=== PATIENT | female | born 1955 | race Caucasian/White ===

== ENCOUNTER → 2023-12-07 | Outpatient (CLI) | payer MEDICARE ==
--- NOTE | 2023-12-07 10:58 | XR ---
EXAMINATION TYPE: XR KUB DATE OF EXAM: 12/07/2023 HISTORY: Pain Comparison: None.Single KUB is submitted for interpretation. Findings: Right renal calculi: None Visualized. Right ureteral calculi: None Visualized. Left renal calculi: Lower pole left renal calculus measuring 1 cm. Left ureteral calculi: None Visualized. Pelvic calcifications: Yes Bowel gas pattern is unremarkable. No free air. No mass effects. IMPRESSION: 1. Lower pole left renal calculus measuring 1 cm. [facility], , 12/07/2023 10:55 AM
== END | disposition home or self-care (01) ==
LOC: RADXRMAIN 10:38
PROVIDERS: ATTEND Urology
DX: N20.0 Calculus of kidney (principal)
CPT/HCPCS: 74018

== ENCOUNTER → 2023-12-23 | Outpatient (CLI) | payer MEDICARE ==
[2023-12-23 16:03] LABS: Basophils # (A) 0.02 X 10*3/uL (0.00-0.10); Basophils % (A) 0.3 %; Eosinophils % (A) 1.6 %; HCT 48.5 % (37.2-46.3); HGB 15.9 g/dL (12.0-15.0); Lymphocytes # (A) 1.02 X 10*3/uL (0.90-5.00); Lymphocytes % (A) 16.2 %; MCH 30.9 pg (27.0-32.0); MCHC 32.8 g/dL (32.0-37.0); MCV 94.4 FL (80.0-97.0); Mean Platelet Volume 10.6 FL (9.5-12.2); Monocytes # (A) 0.39 X 10*3/uL (0.20-1.00); Monocytes % (A) 6.2 %; NRBC Per 100 WBC 0 X 10*3/uL (0.00-0.01); Neutrophils # (A) 4.74 X 10*3/uL (1.80-7.70); Neutrophils % (A) 75.2 %; Platelet Count 139 X 10*3/uL (140-440); RBC 5.14 X 10*6/uL (4.10-5.20); RDW 12.8 % (11.5-14.5)
[2023-12-23 16:47] LABS: Calcium 9.5 mg/dL (8.7-10.3); Carbon Dioxide 25.4 mmol/L (21.6-31.8); Chloride 103 mmol/L (96-109); Glucose 123 mg/dL (70-110); Sodium 141 mmol/L (135-145)
[2023-12-23 22:18] LABS: Appearance,Urine Clear (Clear); Bacteria,Urine Many /hpf; Bilirubin,Urine Negative (Negative); Blood,Urine Negative (Negative); Color,Urine Colorless; Glucose,Urine (UA) Negative (Negative); Ketones,Urine Negative (Negative); Leukocyte Esterase,Urine Moderate (Negative); Mucus,Urine Rare /hpf; Nitrite,Urine Negative (Negative); Protein,Urine Negative (Negative); RBC,Urine 2 /hpf (0-5); Specific Gravity,Urine 1.012 (1.001-1.035); Squamous Epithelial Cell,Urine 3 /hpf (0-4); Urobilinogen,Urine <2.0 mg/dL (<2.0); WBC,Urine 22 /hpf (0-5)
== END | disposition home or self-care (01) ==
LOC: LABPAT 10:17
PROVIDERS: ATTEND Urology
DX: N20.0 Calculus of kidney (principal)
CPT/HCPCS: 80048; 81001; 85025; 87077; 87086; 87186

== ENCOUNTER 2023-12-28 23:01 | Emergency (ER) | payer MEDICARE ==
[2023-12-28 23:09] VITALS: TEMP 98.3
--- NOTE | 2023-12-28 23:47 | ED ---
Allergic Reaction HPI - General Chief complaint: Allergic Reaction Stated complaint: allergic reaction Time Seen by Provider: 12/28/23 23:15 Source: patient Mode of arrival: wheelchair Limitations: no limitations - History of Present Illness Initial Comments: This is a 68-year-old female complaining of throat swelling, rash on left flank and inner thigh, itching of scalp x 2 hours. Patient endorses receiving Keflex for a chronic UTI with subsequent symptoms shortly after taking medication. Patient endorses history of Augmentin allergy but denies prior reaction to Keflex. Patient states she is already taking a Medrol Dosepak to counteract a different medication she often has a reaction to. Patient also endorses use of Benadryl several hours ago with some relief. Patient endorses history of 7 mm kidney stone as cause of her chronic UTI for the past year. States she requires to have the UTI cleared up before undergoing treatment for the kidney stone. Patient denies chest pain, shortness of breath, abdominal pain, N/V/D MD Complaint: allergic reaction, hives Onset/Timin -: hour(s) Exposure: medication Symptoms: rash, itching, difficulty swallowing, difficulty breathing, orolingual swelling Severity: moderate Treatment Prior to Arrival: benadryl, steroids - Related Data Previous Rx's Medication Instructions Recorded Levofloxacin [Levaquin] 750 mg PO DAILY 10 Days #10 tab 12/28/23 Allergies Allergy/AdvReac Type Severity Reaction Status Date / Time cephalexin [From Keflex] Allergy Rash/Hives Verified 12/28/23 23:08 Review of Systems ROS Statement: Those systems with pertinent positive or pertinent negative responses have been documented in the HPI. ROS Other: All systems not noted in ROS Statement are negative. 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 Absent: scleral icterus, conjunctival injection, periorbital swelling ENT exam: Present: normal exam, mucous membranes moist, other (Moderate edema of oropharynx and uvula noted) Neck exam: Present: normal inspection. Absent: tenderness, meningismus, lymphadenopathy Respiratory exam: Present: normal lung sounds bilaterally (Lung sounds clear to auscultation in all roy without wheezing, stridor, rales or rhonchi). Absent: respiratory distress, wheezes, rales, rhonchi, stridor Cardiovascular Exam: Present: regular rate, normal rhythm, normal heart sounds. Absent: systolic murmur, diastolic murmur, rubs, gallop, clicks GI/Abdominal exam: Present: soft, normal bowel sounds. Absent: distended, tenderness, guarding, rebound, rigid Extremities exam: Present: normal inspection, full ROM, normal capillary refill. Absent: tenderness, pedal edema, joint swelling, calf tenderness Back exam: Present: normal inspection Neurological exam: Present: alert, oriented X3, CN II-XII intact Psychiatric exam: Present: normal affect, normal mood Skin exam: Present: warm, dry, intact, normal color, rash, urticaria (Urticaria with wheals noted on left lower flank without excoriation or blistering) Course Vital Signs 12/28/23 23:03 Temperature 98.3 F Pulse Rate 95 Respiratory 20 Rate Blood Pressure 159/72 O2 Sat by Pulse 97 Oximetry Medical Decision Making - Medical Decision Making Was pt. sent in by a medical professional or institution (, PA, MARK UP DESIGNER, urgent care, hospital, or retirement...) When possible be specific @ -No Did you speak to anyone other than the patient for history (EMS, parent, family, police, friend...)? What history was obtained from this source @ -No Did you review nursing and triage notes (agree or disagree)? Why? @ -I reviewed and agree with nursing and triage notes Were old charts reviewed (outside hosp., previous admission, EMS record, old EKG, old radiological studies, urgent care reports/EKG's, retirement records)? Report findings @ -No old charts were reviewed Differential Diagnosis (chest pain, altered mental status, abdominal pain women, abdominal pain men, vaginal bleeding, weakness, fever, dyspnea, syncope, headache, dizziness, GI bleed, back pain, seizure, CVA, palpatations, mental health, musculoskeletal)? @ -Differential Dyspnea: Coronary syndrome, arrhythmia, tamponade, allergic urticaria, angioedema, anaphylaxis, asthma, COPD, pulmonary embolism, pneumonia, pneumothorax, pulmonary effusion, anaphylaxis, diabetic ketoacidosis, flailed chest, pulmonary contusion, diaphragmatic rupture, anemia, neuromuscular, this is not meant to be an all-inclusive list. EKG interpreted by me (3pts min.). @ -Not done X-rays interpreted by me (1pt min.). @ -None done CT interpreted by me (1pt min.). @ -None done U/S interpreted by me (1pt. min.). @ -None done What testing was considered but not performed or refused? (CT, X-rays, U/S, l abs)? Why? @ -None What meds were considered but not given or refused? Why? @ -Patient offered Solu-Medrol IM to treat acute symptoms but patient declined noting sensitivity to medication. Did you discuss the management of the patient with other professionals (professionals i.e. , PA, MARK UP DESIGNER, lab, RT, psych nurse, outreach and education social worker, parts room associate, teacher, operations officer trust department, disease case manager)? Give summary @ -No Was smoking cessation discussed for >3mins.? @ -No Was critical care preformed (if so, how long)? @ -No Were there social determinants of health that impacted care today? How? (Homelessness, low income, unemployed, alcoholism, drug addiction, transportation, low edu. Level, literacy, decrease access to med. care, fci, rehab)? @ -No Was there de-escalation of care discussed even if they declined (Discuss DNR or withdrawal of care, Hospice)? DNR status @ -No What co-morbidities impacted this encounter? (DM, HTN, Smoking, COPD, CAD, Cancer, CVA, ARF, Chemo, Hep., AIDS, mental health diagnosis, sleep apnea, morbid obesity)? @ -None Was patient admitted / discharged? Hospital course, mention meds given and route, prescriptions, significant lab abnormalities, going to OR and other pertinent info. @ -Discharge. Epinephrine IM and Benadryl p.o. given to patient. UA also collected and sent for culture. Advised patient to hold on all Keflex use and start Levaquin tomorrow. Advised to continue Benadryl every 4-6 hours as needed and continue Medrol Dosepak as prescribed. Advised follow-up with primary care in next 24 to 48 hours. Undiagnosed new problem with uncertain prognosis? @ -No Drug Therapy requiring intensive monitoring for toxicity (Heparin, Nitro, Insulin, Cardizem)? @ -No Were any procedures done? @ -No Diagnosis/symptom? @ -Angioedema and allergic urticaria due to medication, urinary tract infection Acute, or Chronic, or Acute on Chronic? @ -Acute Uncomplicated (without systemic symptoms) or Complicated (systemic symptoms)? @ -Complicated Side effects of treatment? @ -No Exacerbation, Progression, or Severe Exacerbation? @ -Exacerbation Poses a threat to life or bodily function? How? (Chest pain, USA, PA, pneumonia, PE, COPD, DKA, ARF, appy, cholecystitis, CVA, Diverticulitis, Homicidal, Suicidal, threat to staff... and all critical care pts) @ -Angioedema Disposition Clinical Impression: Angioedema, Urticaria due to drug allergy, UTI (urinary tract infection) Disposition: HOME SELF-CARE Condition: Good Instructions (If sedation given, give patient instructions): Urinary Tract Infection in Women (ED), Anaphylaxis (ED) Additional Instructions: Continue Benadryl once every 4-6 hours as needed as well as ongoing use of Medrol Dosepak as previously directed. ER/911 if throat swelling/dyspnea should recur. Prescriptions: Levofloxacin [Levaquin] 750 mg PO DAILY 10 Days #10 tab Is patient prescribed a controlled substance at d/c from ED?: No Referrals: Josie Holly MD [Primary Care Provider] - 1-2 days Time of Disposition: 23:55
[2023-12-29] MEDS: EPINEPHrine - Anaphylaxis Kit (1 mg/mL) IM STA (00:12)
[2023-12-29] MEDS: diphenhydrAMINE ELIXIR 25 MG/10 ML CUP PO STA (00:12)
[2023-12-29 00:25] VITALS: BP 123/78; PULSE 80; RESP 16
[2023-12-29 00:48] LABS: Appearance,Urine Clear (Clear); Bacteria,Urine Occasional /hpf; Bilirubin,Urine Negative (Negative); Blood,Urine Negative (Negative); Calcium Oxalate Crystals,Urine Occasional /hpf; Color,Urine Light Yellow; Glucose,Urine (UA) Negative (Negative); Ketones,Urine Negative (Negative); Leukocyte Esterase,Urine Large (Negative); Nitrite,Urine Positive (Negative); Protein,Urine Negative (Negative); RBC,Urine 12 /hpf (0-5); Specific Gravity,Urine 1.015 (1.001-1.035); Squamous Epithelial Cell,Urine 4 /hpf (0-4); Urobilinogen,Urine <2.0 mg/dL (<2.0); WBC,Urine 51 /hpf (0-5)
== END 2023-12-29 00:16 | disposition home or self-care (01) ==
LOC: EC 23:01
CPT/HCPCS: 81001; 87086; 96372; 99283

== ENCOUNTER 2024-05-13 08:30 | Inpatient (IN) | payer MEDICARE, OTHER ==
[2024-05-13] MEDS: ONDANSETRON 4 MG/2 ML VIAL IVP STA (08:49)
[2024-05-13] MEDS: NITROGLYCERIN SL TABS 0.4 MG TAB SUBLINGUAL STA ×2 (08:53→09:00)
[2024-05-13] MEDS: SODIUM CHLORIDE 0.9% 1,000 ML IV STA ×2 (08:54→13:33)
[2024-05-13 09:04] LABS: Basophils % (A) 0 %; Eosinophils % (A) 1 %; HCT 47.8 % (34.0-46.0); HGB 15.2 gm/dL (11.4-16.0); Lymphocytes # (A) 1.2 k/uL (1.0-4.8); Lymphocytes % (A) 15 %; MCH 30.8 pg (25.0-35.0); MCHC 31.7 g/dL (31.0-37.0); MCV 97.1 fL (80.0-100.0); Mean Platelet Volume 7.6; Monocytes # (A) 0.5 k/uL (0-1.0); Monocytes % (A) 6 %; Neutrophils # (A) 5.7 k/uL (1.3-7.7); Neutrophils % (A) 74 %; Platelet Count 133 k/uL (150-450); RBC 4.93 m/uL (3.80-5.40); RDW 12.4 % (11.5-15.5); WBC 7.8 k/uL (3.8-10.6)
[2024-05-13 09:10] LABS: INR 1.1 (<1.2); Partial Thromboplastin Time 23.4 sec (22.0-30.0); Prothrombin Time 11.8 sec (10.0-12.5)
[2024-05-13 09:14] LABS: ALT 17 U/L (4-34); AST 21 U/L (14-36); African American GFR (CKD) >90 (>60 ml/min/1.73 sqM); Albumin 4.4 g/dL (3.5-5.0); Alkaline Phosphatase 79 U/L (38-126); Anion Gap 11 mmol/L; Blood Urea Nitrogen 16 mg/dL (7-17); Calcium 9.3 mg/dL (8.4-10.2); Carbon Dioxide 22 mmol/L (22-30); Chloride 105 mmol/L (98-107); Glucose 163 mg/dL (74-99); Magnesium 1.8 mg/dL (1.6-2.3); Non-African American GFR(CKD) >90 (>60 ml/min/1.73 sqM); Potassium 3.5 mmol/L (3.5-5.1); Sodium 138 mmol/L (137-145); Total Bilirubin 0.9 mg/dL (0.2-1.3); Total Protein 7.3 g/dL (6.3-8.2)
--- NOTE | 2024-05-13 09:33 | XR ---
EXAMINATION TYPE: XR chest 2V DATE OF EXAM: 05/13/2024 9:22 AM COMPARISON: None CLINICAL INDICATION: Female, 69 years old with history of Chest Pain; [facility] TECHNIQUE: XR chest 2V Frontal and lateral views of the chest. FINDINGS: Lungs/Pleura: There is no evidence of pleural effusion, focal consolidation, or pneumothorax. Pulmonary vascularity: Unremarkable. Heart/mediastinum: Cardiomediastinal silhouette is unremarkable. Musculoskeletal: No acute osseous pathology. Other findings: None IMPRESSION: No acute cardiopulmonary disease/process. [facility], , 05/13/2024 9:31 AM
[2024-05-13 09:40] LABS: Influenza A Not Detected (Not Detectd); Influenza B Not Detected (Not Detectd); RSV Not Detected (Not Detectd)
[2024-05-13] MEDS: MORPHINE SULFATE 4 MG/ML SYRINGE IVP STA (09:43)
[2024-05-13] MEDS ORDERED: NALOXONE 0.4 MG/ML 1 ML VIAL IV PRN (10:45)
[2024-05-13] MEDS ORDERED: ONDANSETRON 4 MG/2 ML VIAL IVP PRN (10:45)
--- NOTE | 2024-05-13 10:47 | ED ---
General Adult HPI - General Chief complaint: Chest Pain Stated complaint: chest pain Time Seen by Provider: 05/13/24 08:35 Source: patient, EMS, RN notes reviewed, old records reviewed Mode of arrival: EMS Limitations: no limitations - History of Present Illness Initial comments: Patient is a 69-year-old female presents emergency department with chest pain. States it started approximately 5 AM this morning. Discussed that it is a pressure sensation that is substernal and over the left side of her chest. Does not radiate. Has nausea and vomiting with it. No diaphoresis. Presented after multiple hours of this. Received 324 mg of aspirin but no other medications. No significant cardiac history. Presents for further evaluation at this time. Denies any fevers, chills, cough. - Related Data Home Medications Medication Instructions Recorded Confirmed Biotin(Unknown Dose) 1 tab PO DAILY 05/13/24 05/13/24 Elderberry(Unknown Dose) 1 tab PO DAILY 05/13/24 05/13/24 Vitamin B-12(Unknown Dose) 1 tab PO DAILY 05/13/24 05/13/24 Vitamin C(Unknown Dose) 2 tab PO DAILY 05/13/24 05/13/24 Allergies Allergy/AdvReac Type Severity Reaction Status Date / Time cephalexin [From Keflex] Allergy Rash/Hives Verified 05/13/24 10:46 Sulfa (Sulfonamide Allergy Anaphylaxis Verified 05/13/24 10:46 Antibiotics) Review of Systems ROS Statement: Those systems with pertinent positive or pertinent negative responses have been documented in the HPI. Review of Systems: CONST: Denies fever EYES: Denies blurry vision ENT: Denies nasal congestion C/V: Endorses chest pain RESP: Denies shortness of breath GI: Denies abdominal pain : Denies dysuria SKIN: Denies rash. MSK: Denies joint pain. NEURO: Denies headache ROS Other: All systems not noted in ROS Statement are negative. 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 Also nausea and vomiting. HEAD: Normal with no signs of head trauma. EYES: PERRLA, EOMI, conjunctiva normal, no discharge. ENT: Hearing grossly intact, normal oropharynx. RESPIRATORY: Clear breath sounds bilaterally. No wheezes, rales, or rhonchi. C/V: Regular rate and rhythm. S1 and S2 auscultated, no edema, peripheral pulses 2+ and intact throughout ABD: Abd is soft, nontender, nondistended EXT: Normal range of motion, no obvious deformity SKIN: No rashes or lesions observed on exposed skin. NEURO: Alert and oriented x 4. No focal deficits. Limitations: no limitations Course Vital Signs 05/13/24 05/13/24 05/13/24 08:32 08:59 09:44 Temperature 97.7 F Pulse Rate 67 67 61 Respiratory 20 20 20 Rate Blood Pressure 145/81 117/52 121/62 O2 Sat by Pulse 99 98 99 Oximetry 05/13/24 13:02 Temperature Pulse Rate 69 Respiratory Rate Blood Pressure 121/62 O2 Sat by Pulse 95 Oximetry Medical Decision Making - Medical Decision Making Was pt. sent in by a medical professional or institution (, PA, LENS SHAPER GRINDER, urgent care, hospital, or shelter...) When possible be specific @ -No Did you speak to anyone other than the patient for history (EMS, parent, family, police, friend...)? What history was obtained from this source @ -No Did you review nursing and triage notes (agree or disagree)? Why? @ -I reviewed and agree with nursing and triage notes Were old charts reviewed (outside hosp., previous admission, EMS record, old EKG, old radiological studies, urgent care reports/EKG's, shelter records)? Report findings @ -No old charts were reviewed Differential Diagnosis (chest pain, altered mental status, abdominal pain women, abdominal pain men, vaginal bleeding, weakness, fever, dyspnea, syncope, headache, dizziness, GI bleed, back pain, seizure, CVA, palpatations, mental health, musculoskeletal)? @ -Differential Chest Pain: Stable Angina, Unstable Angina, STEMI, NSTEMI Aortic Dissection, Pneumothorax, Musculoskeletal, Esophageal Spasm GERD, Cholecystitis, Pancreatitis, Zoster, this is not meant to be an all-inclusive list. EKG interpreted by me (3pts min.). @ -As above X-rays interpreted by me (1pt min.). @ -Chest x-ray revealed no obvious acute cardiopulmonary process. CT interpreted by me (1pt min.). @ -None done U/S interpreted by me (1pt. min.). @ -None done What testing was considered but not performed or refused? (CT, X-rays, U/S, labs)? Why? @ -None What meds were considered but not given or refused? Why? @ -None Did you discuss the management of the patient with other professionals (professionals i.e. , PA, LENS SHAPER GRINDER, lab, RT, psych nurse, social and political studies professor, aeronautical engineering officer, teacher, financial aids officer, case sealer)? Give summary @ -Discussed management with Dr. Artis, who accepted the admission. Nursing staff updated cardiology when the troponin was elevated. Patient was made NPO. Was smoking cessation discussed for >3mins.? @ -No Was critical care preformed (if so, how long)? @ -Yes, 35 minutes. Were there social determinants of health that impacted care today? How? (Homelessness, low income, unemployed, alcoholism, drug addiction, transportation, low edu. Level, literacy, decrease access to med. care, correction, rehab)? @ -No Was there de-escalation of care discussed even if they declined (Discuss DNR or withdrawal of care, Hospice)? DNR status @ -No What co-morbidities impacted this encounter? (DM, HTN, Smoking, COPD, CAD, Cancer, CVA, ARF, Chemo, Hep., AIDS, mental health diagnosis, sleep apnea, morbid obesity)? @ -None Was patient admitted / discharged? Hospital course, mention meds given and route, prescriptions, significant lab abnormalities, going to OR and other pertinent info. @ -Patient presents with substernal chest pain with nausea and vomiting. Started approximately 3 hours prior to arrival. Patient given IV fluids, Zofran. Already received 3 to 24 mg of aspirin at home. Patient will receive nitroglycerin tablets. Vitals are within acceptable limits. She was in agreement this plan. Nitro tablets did not significantly improve the patient's pain. She was given 4 mg of IV morphine which did resolve her pain. Patient's EKG showed nonspecific ST segment depressions but no evidence of reciprocal changes. Chest x-ray unremarkable. Repeat EKG showed no dynamic changes. Patient's laboratory studies are remarkable for a indeterminant troponin at 0.016. The remainder the workup unremarkable. I discussed results with patient. She states she is pain-free at this time. She will be admitted for chest pain observation. She was in agreement this plan. Echo ordered. Cardiology consulted. I spoke with the admitting provider, Dr. Gotti who accepted the admission. Following admission, I was informed that while the patient was holding in the ER, troponin did elevate 0.8. Therefore heparin was initiated by myself. Repeat EKG revealed no dynamic changes. Nursing staff notified cardiology of the change they were in agreement the heparin. Patient may be going for heart c ath and was made NPO. Undiagnosed new problem with uncertain prognosis? @ -No Drug Therapy requiring intensive monitoring for toxicity (Heparin, Nitro, Insulin, Cardizem)? @ -Heparin Were any procedures done? @ -No Diagnosis/symptom? @ -Chest pain, NSTEMI Acute, or Chronic, or Acute on Chronic? @ -Acute Uncomplicated (without systemic symptoms) or Complicated (systemic symptoms)? @ -Complicated Side effects of treatment? @ -No Exacerbation, Progression, or Severe Exacerbation? @ -No Poses a threat to life or bodily function? How? (Chest pain, [place], [place], pneumonia, PE, COPD, DKA, ARF, appy, cholecystitis, CVA, Diverticulitis, Homicidal, Suicidal, threat to staff... and all critical care pts) @ -Yes - Lab Data Result diagrams: 05/13/24 08:41 05/13/24 08:41 Lab Results 05/13/24 05/13/24 05/13/24 Range/Units 08:41 08:41 08:41 WBC 7.8 (3.8-10.6) k/uL RBC 4.93 (3.80-5.40) m/uL Hgb 15.2 (11.4-16.0) gm/dL Hct 47.8 H (34.0-46.0) % MCV 97.1 (80.0-100.0) fL MCH 30.8 (25.0-35.0) pg MCHC 31.7 (31.0-37.0) g/dL RDW 12.4 (11.5-15.5) % Plt Count 133 L (150-450) k/uL MPV 7.6 Neutrophils % 74 % Lymphocytes % 15 % Monocytes % 6 % Eosinophils % 1 % Basophils % 0 % Neutrophils # 5.7 (1.3-7.7) k/uL Lymphocytes # 1.2 (1.0-4.8) k/uL Monocytes # 0.5 (0-1.0) k/uL Eosinophils # 0.0 (0-0.7) k/uL Basophils # 0.0 (0-0.2) k/uL PT 11.8 (10.0-12.5) sec INR 1.1 (<1.2) APTT 23.4 (22.0-30.0) sec Sodium 138 (137-145) mmol/L Potassium 3.5 (3.5-5.1) mmol/L Chloride 105 (98-107) mmol/L Carbon Dioxide 22 (22-30) mmol/L Anion Gap 11 mmol/L BUN 16 (7-17) mg/dL Creatinine 0.59 (0.52-1.04) mg/dL Est GFR (CKD-EPI)AfAm >90 (>60 ml/min/1.73 sqM) Est GFR (CKD-EPI)NonAf >90 (>60 ml/min/1.73 sqM) Glucose 163 H (74-99) mg/dL Calcium 9.3 (8.4-10.2) mg/dL Magnesium 1.8 (1.6-2.3) mg/dL Total Bilirubin 0.9 (0.2-1.3) mg/dL AST 21 (14-36) U/L ALT 17 (4-34) U/L Alkaline Phosphatase 79 (38-126) U/L Troponin I (0.000-0.034) ng/mL Total Protein 7.3 (6.3-8.2) g/dL Albumin 4.4 (3.5-5.0) g/dL Lipase (23-300) U/L Influenza Type A (PCR) (Not Detectd) Influenza Type B (PCR) (Not Detectd) RSV (PCR) (Not Detectd) SARS-CoV-2 (PCR) (Not Detectd) 05/13/24 05/13/24 05/13/24 Range/Units 08:41 08:41 08:54 WBC (3.8-10.6) k/uL RBC (3.80-5.40) m/uL Hgb (11.4-16.0) gm/dL Hct (34.0-46.0) % MCV (80.0-100.0) fL MCH (25.0-35.0) pg MCHC (31.0-37.0) g/dL RDW (11.5-15.5) % Plt Count (150-450) k/uL MPV Neutrophils % % Lymphocytes % % Monocytes % % Eosinophils % % Basophils % % Neutrophils # (1.3-7.7) k/uL Lymphocytes # (1.0-4.8) k/uL Monocytes # (0-1.0) k/uL Eosinophils # (0-0.7) k/uL Basophils # (0-0.2) k/uL PT (10.0-12.5) sec INR (<1.2) APTT (22.0-30.0) sec Sodium (137-145) mmol/L Potassium (3.5-5.1) mmol/L Chloride (98-107) mmol/L Carbon Dioxide (22-30) mmol/L Anion Gap mmol/L BUN (7-17) mg/dL Creatinine (0.52-1.04) mg/dL Est GFR (CKD-EPI)AfAm (>60 ml/min/1.73 sqM) Est GFR (CKD-EPI)NonAf (>60 ml/min/1.73 sqM) Glucose (74-99) mg/dL Calcium (8.4-10.2) mg/dL Magnesium (1.6-2.3) mg/dL Total Bilirubin (0.2-1.3) mg/dL AST (14-36) U/L ALT (4-34) U/L Alkaline Phosphatase (38-126) U/L Troponin I 0.016 (0.000-0.034) ng/mL Total Protein (6.3-8.2) g/dL Albumin (3.5-5.0) g/dL Lipase 217 (23-300) U/L Influenza Type A (PCR) Not Detected (Not Detectd) Influenza Type B (PCR) Not Detected (Not Detectd) RSV (PCR) Not Detected (Not Detectd) SARS-CoV-2 (PCR) Not Detected (Not Detectd) - EKG Data -: EKG Interpreted by Me EKG Comments: 12-lead Electrocardiogram Interpretation Note EKG was reviewed and interpreted by myself. 12-lead ECG performed at 0839 is interpreted by me as revealing normal sinus rhythm with right bundle branch block morphology at a rate of 67 beats per minute. Left axis deviation. [place] interval is 231 ms, QRS duration is 139 ms, QTc is [address] segment depressions in the inferior and lateral precordial leads with no reciprocal changes... R wave progression across the precordium was delayed.. 12-lead Electrocardiogram Interpretation Note EKG was reviewed and interpreted by myself. 12-lead ECG performed at 0903 is interpreted by me as revealing normal sinus rhythm at a rate of 70 beats per minute. Left axis deviation. [place] interval is 236 ms, QRS duration is 141 ms, QTc is 442 ms. No significant acute change, redemonstrated nonspecific ST segment depressions with no reciprocal changes.. There were no ST or T wave abnormalities to suggest myocardial ischemia or injury. R wave progression across the precordium was delayed. 12-lead Electrocardiogram Interpretation Note EKG was reviewed and interpreted by myself. 12-lead ECG performed at 1307 is interpreted by me as revealing normal sinus rhythm with right bundle branch block morphology at a rate of 68 beats per minute. Left axis deviation. [place] interval is 222 ms, QRS durations 141 ms, QTc is [address] segment depressions in the inferior and lateral leads that are unchanged. No other dynamic changes... R wave progression across the precordium was delayed y. Critical Care Time Critical Care Time: Yes Total Critical Care Time: 35 Disposition Clinical Impression: Acute non-ST elevation myocardial infarction (NSTEMI), Chest pain Disposition: [facility] Condition: Serious Time of Disposition: 10:30
--- NOTE | 2024-05-13 12:38 | P.HPIM ---
History of Present Illness H&P Date: 05/13/24 History of present illness; patient 69-year-old lady with past medical history significant for kidney stone who presents to ER for chest pain. Patient stated that she was all right this morning when she was woken up from sleep with chest pain that was central in location, pressure-like, nonradiating, no aggravating or relieving factor associated with chest pain. Patient was complaining of shortness of breath that time. Patient also had nausea and vomiting. Patient stated that she has a lot of stress going on at home. Denies any fever or chills. There is no complaint of orthopnea or PND. Patient denies any swelling of feet. Because of this chest pain, patient brought to the ED Initial lab work done in the ER showed WBC 9.8, hemoglobin 15.2, platelet count 133, sodium 130, potassium 3.5, BUN 16, creatinine 0.59, glucose 163, calcium 9.3, Agnesian 1.8, AST 21, ALT 17, Influenza A not detected Influenza B not detected RSV not detected COVID-19 not detected EKG done in the ER showed heart rate of 67, no ST segment elevation or depression seen, no T-wave inversions seen. Chest x-ray done in the ER showed no acute cardiopulmonary process Patient admitted to internal medicine service REVIEW OF SYSTEMS: CONSTITUTIONAL: No fever, no malaise, no fatigue. HEENT: No recent visual problems or hearing problems. Denied any sore throat. CARDIOVASCULAR: As mentioned above PULMONARY: Mentioned above GASTROINTESTINAL: No diarrhea, no nausea, no vomiting, no abdominal pain. NEUROLOGICAL: No headaches, no weakness, no numbness. HEMATOLOGICAL: Denies any bleeding or petechiae. GENITOURINARY: Denies any burning micturition, frequency, or urgency. MUSCULOSKELETAL/RHEUMATOLOGICAL: Denies any joint pain, swelling, or any muscle pain. ENDOCRINE: Denies any polyuria or polydipsia. The rest of the 14-point review of systems is negative. PHYSICAL EXAMINATION: GENERAL: The patient is alert and oriented x3, not in any acute distress. Well developed, well nourished. HEENT: Pupils are round and equally reacting to light. EOMI. No scleral icterus. No conjunctival pallor. Normocephalic, atraumatic. No pharyngeal erythema. No thyromegaly. CARDIOVASCULAR: S1 and S2 present. No murmurs, rubs, or gallops. PULMONARY: Chest is clear to auscultation, no wheezing or crackles. ABDOMEN: Soft, nontender, nondistended, normoactive bowel sounds. No palpable organomegaly. MUSCULOSKELETAL: No joint swelling or deformity. EXTREMITIES: No cyanosis, clubbing, or pedal edema. NEUROLOGICAL: Gross neurological examination did not reveal any focal deficits. SKIN: No rashes. Assessment and plan Chest pain, rule out acute coronary syndrome History of kidney stones History of melanoma Monitor vital signs Monitor CBC Monitor CMP Continue telemetry monitoring Trend troponin Ordered D-dimer Ordered lipid panel Order HbA1c level Ordered 2D echo Consult cardiology Labs and medication were reviewed.. Continue same treatment. Continue with symptomatic treatment. Resume home medication. Monitor labs and vitals. DVT and GI prophylaxis. Further recommendations as per clinical course of the patient Dictation was produced using Nervog[employer] dictation software. please excuse any gr ammatical, word or spelling errors. Past Medical History Past Medical History: Cancer Additional Past Medical History / Comment(s): UTI,kidney stones, melenoma History of Any Multi-Drug Resistant Organisms: None Reported Past Surgical History: Appendectomy, Section Additional Past Surgical History / Comment(s): lithotripsy Past Psychological History: No Psychological Hx Reported Smoking Status: Never smoker Past Alcohol Use History: Occasional Past Drug Use History: Marijuana Medications and Allergies Home Medications Medication Instructions Recorded Confirmed Type Biotin(Unknown Dose) 1 tab PO DAILY 05/13/24 05/13/24 History Elderberry(Unknown Dose) 1 tab PO DAILY 05/13/24 05/13/24 History Vitamin B-12(Unknown Dose) 1 tab PO DAILY 05/13/24 05/13/24 History Vitamin C(Unknown Dose) 2 tab PO DAILY 05/13/24 05/13/24 History Allergies Allergy/AdvReac Type Severity Reaction Status Date / Time cephalexin [From Keflex] Allergy Rash/Hives Verified 05/13/24 10:46 Sulfa (Sulfonamide Allergy Anaphylaxis Verified 05/13/24 10:46 Antibiotics) Physical Exam Vitals: Vital Signs Temp Pulse Resp BP Pulse Ox 05/13/24 09:44 61 20 121/62 99 05/13/24 08:59 67 20 117/52 98 05/13/24 08:32 97.7 F 67 20 145/81 99 Intake and Output 05/12/24 05/13/24 05/13/24 22:59 06:59 14:59 Other: Weight 67.585 kg Results CBC & Chem 7: 05/13/24 08:41 05/13/24 08:41 Labs: Abnormal Lab Results - Last 24 Hours (Table) 05/13/24 05/13/24 Range/Units 08:41 08:41 Hct 47.8 H (34.0-46.0) % Plt Count 133 L (150-450) k/uL Glucose 163 H (74-99) mg/dL
--- NOTE | 2024-05-13 13:00 | P.CRDCN ---
History of Present Illness History of present illness: HISTORY OF PRESENT ILLNESS: This is a 69-year-old female with a past medical history significant for borderline diabetes per patient. 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 We have been asked to see the patient in consultation for chest pain. Patient examined at the bedside in the emergency room. Patient states that she moved up from [place] in October and since that time she has been having intermittent chest pain. She does report that she has been extremely stressed out lately. She states she woke up this morning from a sleep with pain in the middle of her chest. She denies any radiation of the pain. She states that the pain lasted until she came to the emergency room and received morphine. She reports a family history of CAD. She states that her dad had a CABG when he was in his 80s. She is a non-smoker. She does report marijuana use. Patient states that she takes no prescription medications. DIAGNOSTICS: - EKG reveals sinus mechanism with right bundle branch block. Left anterior fascicular block. LVH. - Chest xray negative for acute process. - Laboratory data: WBC 7.8. Hemoglobin 15.2. Platelet count 133. Sodium 138. Potassium 3.5. BUN 16. Creatinine 0.59. Magnesium 1.8. Troponin negative x 1. - Current home cardiac medications include none. - No previous echocardiogram, stress test, or cardiac catheterization available in EMR for review REVIEW OF SYSTEMS: At the time of my exam: CONSTITUTIONAL: Denies fever or chills. HEENT: Denies blurred vision, vision changes, or eye pain. Denies hemoptysis CARDIOVASCULAR: Denies chest pain. Denies orthopnea. Denies PND. Denies palpitations RESPIRATORY: Denies shortness of breath. GASTROINTESTINAL: Denies abdominal pain. Denies nausea or vomiting. HEMATOLOGIC: Denies bleeding disorders. GENITOURINARY: Denies any blood in urine. SKIN: Denies pruitis. Denies rash. PHYSICAL EXAM: VITAL SIGNS: Reviewed. GENERAL: Well-developed in no acute distress. HEENT: Head is normocephalic. Pupils are equal, round. Sclerae anicteric. Mucous membranes of the mouth are moist. Neck supple. No JVD or thyromegaly LUNGS: Respirations even and unlabored. Lungs essentially clear to auscultation bilaterally. HEART: Regular rate and rhythm. S1 and S2 heard. ABDOMEN: Soft. Nondistended. Nontender. EXTREMITIES: Normal range of motion. No clubbing or cyanosis. Peripheral pulses intact. No lower extremity edema NEUROLOGIC: Awake and alert. Oriented x 3. ASSESSMENT: Chest pain, troponin negative x 1 Borderline diabetes per patient PLAN: Obtain 2D echo to assess cardiac structure and function Add aspirin 81 mg daily Check lipid panel and hemoglobin A1c Trend troponins If troponins remain unremarkable, will consider stress testing to be performed on Thursday Further recommendations pending patient course Nurse practitioner note has been reviewed by physician. Signing provider agrees with the documented findings, assessment, and plan of care documented by SENIOR STOCK PLAN ADMINISTRATOR as a scribe. Past Medical History Past Medical History: Cancer Additional Past Medical History / Comment(s): UTI,kidney stones, melenoma History of Any Multi-Drug Resistant Organisms: None Reported Past Surgical History: Appendectomy, Section Additional Past Surgical History / Comment(s): lithotripsy Past Psychological History: No Psychological Hx Reported Smoking Status: Never smoker Past Alcohol Use History: Occasional Past Drug Use History: Marijuana Medications and Allergies Home Medications Medication Instructions Recorded Confirmed Type Biotin(Unknown Dose) 1 tab PO DAILY 05/13/24 05/13/24 History Elderberry(Unknown Dose) 1 tab PO DAILY 05/13/24 05/13/24 History Vitamin B-12(Unknown Dose) 1 tab PO DAILY 05/13/24 05/13/24 History Vitamin C(Unknown Dose) 2 tab PO DAILY 05/13/24 05/13/24 History Allergies Allergy/AdvReac Type Severity Reaction Status Date / Time cephalexin [From Keflex] Allergy Rash/Hives Verified 05/13/24 10:46 Sulfa (Sulfonamide Allergy Anaphylaxis Verified 05/13/24 10:46 Antibiotics) Physical Exam Vitals: Vital Signs Temp Pulse Resp BP Pulse Ox 05/13/24 09:44 61 20 121/62 99 05/13/24 08:59 67 20 117/52 98 05/13/24 08:32 97.7 F 67 20 145/81 99 Intake and Output 05/12/24 05/13/24 05/13/24 22:59 06:59 14:59 Other: Weight 67.585 kg Results 05/13/24 08:41 05/13/24 08:41 Cardiac Enzymes 05/13/24 05/13/24 Range/Units 08:41 08:41 AST 21 (14-36) U/L Troponin I 0.016 (0.000-0.034) ng/mL Coagulation 05/13/24 Range/Units 08:41 PT 11.8 (10.0-12.5) sec APTT 23.4 (22.0-30.0) sec CBC 05/13/24 Range/Units 08:41 WBC 7.8 (3.8-10.6) k/uL RBC 4.93 (3.80-5.40) m/uL Hgb 15.2 (11.4-16.0) gm/dL Hct 47.8 H (34.0-46.0) % Plt Count 133 L (150-450) k/uL Comprehensive Metabolic Panel 05/13/24 Range/Units 08:41 Sodium 138 (137-145) mmol/L Potassium 3.5 (3.5-5.1) mmol/L Chloride 105 (98-107) mmol/L Carbon Dioxide 22 (22-30) mmol/L BUN 16 (7-17) mg/dL Creatinine 0.59 (0.52-1.04) mg/dL Glucose 163 H (74-99) mg/dL Calcium 9.3 (8.4-10.2) mg/dL AST 21 (14-36) U/L ALT 17 (4-34) U/L Alkaline Phosphatase 79 (38-126) U/L Total Protein 7.3 (6.3-8.2) g/dL Albumin 4.4 (3.5-5.0) g/dL Current Medications Generic Name Dose Route Start Last Admin Trade Name Freq PRN Reason Stop Dose Admin Hydrocodone Bitart/Acetaminophen 1 each 05/13/24 11:42 Hydrocodone/Apap 5-325mg 1 Each Tab PO Q6HR PRN Pain Heparin Sodium (Porcine) 5,000 unit 05/13/24 16:00 Heparin Sodium,Porcine 5,000 Unit/Ml 1 Ml Vial SQ Q8HR AYO Morphine Sulfate 2 mg 05/13/24 11:42 Morphine Sulfate 2 Mg/Ml Syringe IVP Q6HR PRN Pain/Discomfort Naloxone HCl 0.2 mg 05/13/24 10:45 Naloxone 0.4 Mg/Ml 1 Ml Vial IV Q2M PRN Opioid Reversal Ondansetron HCl 4 mg 05/13/24 10:45 Ondansetron 4 Mg/2 Ml Vial IVP Q8HR PRN Nausea And Vomiting Intake and Output 05/12/24 05/13/24 05/13/24 22:59 06:59 14:59 Other: Weight 67.585 kg Patient Weight 05/14/24 06:59 Weight 67.585 kg 05/13/24 08:41 05/13/24 08:41
[2024-05-13] MEDS ORDERED: HEPARIN SODIUM 1,000 UN/ML (10ML VL) IV PRN (13:01)
[2024-05-13] MEDS: TAMSULOSIN 0.4 MG CAP.ER.24H PO STA (13:27)
[2024-05-13] MEDS: HEPARIN SOD,PORK IN 0.45% NACL 25,000 UNIT in 0.45% NACL 1 250ML.BAG IV SCH (13:29)
[2024-05-13] MEDS: HEPARIN SODIUM 1,000 UN/ML (10ML VL) IV ONE (13:29)
[2024-05-13] MEDS: MORPHINE SULFATE 2 MG/ML SYRINGE IVP PRN (13:31)
[2024-05-13] MEDS ORDERED: ALPRAZolam 0.25 MG TAB PO PRN (13:36)
[2024-05-13] MEDS: ASPIRIN 325 MG TAB PO STA (14:09)
[2024-05-13] MEDS: SODIUM CHLORIDE 0.9% 1,000 ML in EMPTY BAG 1 BAG IV SCH ×2 (14:09→20:26)
[2024-05-13] MEDS: ATORVASTATIN 80 MG TAB PO STA (14:10)
[2024-05-13 15:04] LABS: Chol/HDL Ratio 5.05 Ratio; LDL Cholesterol,Calculated 127.8 mg/dL (0.0-131.0)
[2024-05-13] MEDS ORDERED: HEPARIN SODIUM,PORCINE 5,000 UNIT/ML 1 ML VIAL SQ SCH (16:00)
[2024-05-13] MEDS: NITROGLYCERIN SL TABS 0.4 MG TAB SUBLINGUAL PRN (16:32)
[2024-05-13] MEDS: LIDOCAINE 1% INJ 10MG/ML (30 ML VIAL-PF) SQ ONE (18:14)
[2024-05-13] MEDS: VERAPAMIL SYRINGE (5 MG/10 ML) INTRAARTER ONE (18:15)
[2024-05-13] MEDS: MIDAZOLAM 2 MG/2 ML VIAL IVP ONE ×3 (18:15)
[2024-05-13] MEDS: MORPHINE SULFATE 4 MG/ML SYRINGE IVP ONE ×2 (18:16)
[2024-05-13] MEDS: fentaNYL (PF) 50 MCG/1 ML VIAL IVP ONE ×2 (18:16)
[2024-05-13] MEDS: HEPARIN SODIUM 1,000 UN/ML (10ML VL) IVP ONE (18:17)
[2024-05-13] MEDS: IV FLUID CONTINUATION 1,000 ML IV ONE (18:25)
[2024-05-13] MEDS: IOPAMIDOL-300 100ML BTL INJ ONE ×2 (18:53→19:28)
[2024-05-13] MEDS ORDERED: LIDOCAINE 1% INJ 10MG/ML (20 ML MDV) ONE (19:29)
[2024-05-13] MEDS: PRASUGREL 10 MG TAB PO ONE (19:29)
[2024-05-13] MEDS ORDERED: PROPOFOL 10 MG/ML 20 ML VIAL IV ONE (19:29)
[2024-05-13] MEDS ORDERED: RX INFO: IV CONTRAST WAS GIVEN 1 EACH MISC MISCELLANE PRN (19:39)
[2024-05-13] MEDS ORDERED: ZOLPIDEM 5 MG TAB PO PRN (19:39)
[2024-05-13] MEDS ORDERED: MAG HYDROX/AL HYDROX/SIMETH 30 ML CUP PO PRN (19:39)
[2024-05-13] MEDS ORDERED: NITROGLYCERIN SL TABS 0.4 MG TAB SUBLINGUAL PRN (19:39)
[2024-05-13] MEDS ORDERED: ATROPINE SULFATE 0.1 MG/ML 10ML SYRINGE IV PRN (19:39)
--- NOTE | 2024-05-13 19:47 | P.PCN ---
Date of Procedure: 05/13/24 Operative Findings: CARDIAC CATHETERIZATION AND PERCUTANEOUS CORONARY INTERVENTION PERFORMING PHYSICIAN: Nando Rene MD, [facility] PROCEDURE PERFORMED: 1. Selective right and left coronary angiogram and left heart catheterization 2. Successful stenting of mid LCx and proximal LCx using 2.25 x 18 and 4.0 x 15 mm Xience HEMANT with an excellent angiographic results 3. Adjunctive use of IVUS and IFR 4. Ultrasound-guided access of the right radial artery INDICATION: Acute non-ST elevation myocardial infarction COMPLICATION: None APPROACH: Right radial artery LEVEL OF SEDATION: Moderate with the sedation time off 77 minutes PROCEDURE DESCRIPTION: After obtaining informed consent the patient was brought to the cardiac Ear Machine Operator. The right radial artery was cannulated using micropuncture technique under ultrasound guidance a micropuncture wire passed easily then I placed a 6 Moroccan 11 cm sheath at the right radial artery. Anticoagulation was initiated using heparin with continuous ACT monitoring and subsequently I gave the patient 2 mg of verapamil intra-arterial. Selective right and left coronary angiogram performed smoothly using JR4 and JL 3.5 catheters. When we tried to intervene on the left circumflex, I could not advance the JL 3.5 guiding catheter because of extreme spasm and tortuosity. I did exchange my 11 cm 6 Moroccan sheath into a 55 cm 6 Moroccan Ansell sheath using 035 wire. The sheath was advanced almost to the level of the right shoulder. With that I was able to engage the left main using JL 3.5 guiding catheter. I was able to cross acute total occlusion of the left circumflex where the wire was advanced to OM1. I was able to advance another wire to the AV groove left circumflex coronary artery. Balloon angioplasty initially was performed using 1.5 mm and subsequently 2 mm balloon. After that I did balloon angioplasty of the AV groove left circumflex as well. Also I did IVUS of the left circumflex but the IVUS could not advance to the mid left circumflex only to the ostial left circumflex. The IVUS identified calcified artery. I did after that stenting of the left circumflex in the AV groove across OM1 using 2.25 x 18 mm Xience HEMANT where the stent was positioned under fluoroscopy guidance and deployed under fluoroscopy guidance and postdilated using 3 oh by 15 mm noncompliant balloon. An angiogram was taken and showed haziness in the proximal left circumflex coronary artery which also I decided to stent using 4.0 x 15 mm Xience HEMANT where the stent again was positioned under fluoroscopy guidance and deployed under fluoroscopy guidance and postdilated using 4 mm NC balloon. Final angiogram showed excellent angiographic results with OTONIEL-3 flow in the left circumflex coronary artery. Because of extreme spasm and extreme pain we called anesthesia where the long sheath/Ansell sheath was pulled under sedation using propofol. The procedure itself was completed with no complication. Please note that also we decided to do an IFR of the LAD. After zeroing the Dobler wire and equalizing between the Dobler wire and guiding catheter which was JL 3.5 guiding catheter the left main was engaged and the LAD was wired with IFR came to be at 0.74. SELECTIVE CORONARY ANGIOGRAM: The right coronary artery: Large caliber vessel and a dominant vessel appears to be chronically occluded in the midportion and fills by contralateral collaterals coming mainly from the LAD Left main: Calcified with mild disease only. The left circumflex: Large caliber vessel nondominant vessel is acutely occluded in the proximal to midportion before the bifurcation of first and second obtuse marginal branch The left anterior descending artery: The large caliber vessel. The proximal left anterior descending artery has a hazy lesion calcified lesion as well appears to be in the range of 70% and the lesion documented to be flow-limiting by Doppler wire CONCLUSION: 1. PIPE STEM ALIGNER of the RCA which fills by contralateral collateral mainly coming from the LAD 2. Acute total occlusion of the left circumflex. I did successful PCI of the LCx as described above 3. Severe disease involving the proximal left anterior descending artery. The patient need to undergo PCI of the LAD on different session 4. Avoid any right radial approach for any heart catheterization or intervention in the future POSTPROCEDURE MANAGEMENT: 1. Dual antiplatelet therapy using aspirin and Effient for 12 month 2. Aggressive cholesterol control 3. Follow-up with the patient
[2024-05-13] MEDS: METOPROLOL TARTRATE 12.5 MG TAB PO SCH (20:26)
[2024-05-13] MEDS: ATORVASTATIN 80 MG TAB PO SCH (20:26)
[2024-05-13 20:42] LABS: Glucose,Whole Blood 84 mg/dL (70-110)
[2024-05-13 22:59] LABS: Appearance,Urine Clear (Clear); Bacteria,Urine Rare /hpf; Bilirubin,Urine Negative (Negative); Blood,Urine Small (Negative); Color,Urine Colorless; Glucose,Urine (UA) Negative (Negative); Ketones,Urine 1+ (Negative); Leukocyte Esterase,Urine Negative (Negative); Nitrite,Urine Positive (Negative); PH, Urine 6.5 (5.0-8.0); Protein,Urine Negative (Negative); RBC,Urine 7 /hpf (0-5); Squamous Epithelial Cell,Urine <1 /hpf (0-4); Urobilinogen,Urine <2.0 mg/dL (<2.0); WBC,Urine 8 /hpf (0-5)
[2024-05-14 06:20] LABS: Glucose,Whole Blood 106 mg/dL (70-110)
[2024-05-14 06:21] LABS: HCT 41.4 % (34.0-46.0); HGB 13.2 gm/dL (11.4-16.0); MCH 30.7 pg (25.0-35.0); MCHC 31.9 g/dL (31.0-37.0); MCV 96.3 fL (80.0-100.0); Mean Platelet Volume 8.3; Platelet Count 105 k/uL (150-450); RDW 12.9 % (11.5-15.5); WBC 6.5 k/uL (3.8-10.6)
[2024-05-14 06:32] LABS: INR 1.1 (<1.2); Prothrombin Time 11.6 sec (10.0-12.5)
[2024-05-14 06:45] LABS: ALT 26 U/L (4-34); AST 105 U/L (14-36); African American GFR (CKD) >90 (>60 ml/min/1.73 sqM); Albumin 3.2 g/dL (3.5-5.0); Alkaline Phosphatase 64 U/L (38-126); Anion Gap 4 mmol/L; Blood Urea Nitrogen 9 mg/dL (7-17); Calcium 8.7 mg/dL (8.4-10.2); Carbon Dioxide 23 mmol/L (22-30); Chloride 108 mmol/L (98-107); Glucose 93 mg/dL (74-99); Non-African American GFR(CKD) >90 (>60 ml/min/1.73 sqM); Potassium 3.9 mmol/L (3.5-5.1); Sodium 135 mmol/L (137-145); Total Bilirubin 0.7 mg/dL (0.2-1.3); Total Protein 5.9 g/dL (6.3-8.2)
[2024-05-14 06:56] LABS: Band Neutrophils % 6 %; Lymphocytes # (M) 1.69 k/uL (1.0-4.8); Monocytes # (M) 0.26 k/uL (0-1.0); Neutrophils % (M) 61 %; Nucleated Red Blood Cells 0 /100 WBC (0-0); Total Cells Counted 100
[2024-05-14] MEDS ORDERED: HEPARIN SODIUM,PORCINE 10,000 UNIT in SODIUM CHLORIDE 0.9% 1,000 ML IRRIGATION PRN (07:00)
[2024-05-14] MEDS ORDERED: HEPARIN SODIUM,PORCINE (1 ML) 2,500 UNIT in SODIUM CHLORIDE 0.9% 250 ML IRRIGATION PRN (07:00)
[2024-05-14] MEDS: ASPIRIN 81 MG PO SCH (08:17)
[2024-05-14] MEDS: PRASUGREL 10 MG TAB PO SCH (10:32)
[2024-05-14] MEDS: HYDROcodone/APAP 5-325MG 1 EACH TAB PO PRN (10:46)
--- NOTE | 2024-05-14 11:45 | P.PN ---
Subjective Progress Note Date: 05/14/24 HISTORY OF PRESENT ILLNESS: This is a 69-year-old female with a past medical history significant for bor derline diabetes per patient. 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 We have been asked to see the patient in consultation for chest pain. Patient examined at the bedside in the emergency room. Patient states that she moved up from [place] in October and since that time she has been having intermittent chest pain. She does report that she has been extremely stressed out lately. She states she woke up this morning from a sleep with pain in the middle of her chest. She denies any radiation of the pain. She states that the pain lasted until she came to the emergency room and received morphine. She reports a family history of CAD. She states that her dad had a CABG when he was in his 80s. She is a non-smoker. She does report marijuana use. Patient states that she takes no prescription medications. DIAGNOSTICS: - EKG reveals sinus mechanism with right bundle branch block. Left anterior fascicular block. LVH. - Chest xray negative for acute process. - Laboratory data: WBC 7.8. Hemoglobin 15.2. Platelet count 133. Sodium 138. Potassium 3.5. BUN 16. Creatinine 0.59. Magnesium 1.8. Troponin negative x 1. - Current home cardiac medications include none. - No previous echocardiogram, stress test, or cardiac catheterization available in EMR for review 05/14 Patient seen and examined on the cardiac stepdown unit. Patient denies having chest pain chest pressure. Yesterday, patient underwent cardiac catheterization with Dr. Rene which revealed APPRENTICE PAINTER BRUSH of the RCA which fills by collateral mainly coming from the LAD, acute total occlusion of the left circumflex status post successful PCI of the left circumflex, also, severe disease involving the proximal left anterior descending artery and patient will need to go for PCI of the LAD on a different session. Plan to avoid radial right sided approach for the next procedure. Patient is scheduled for Thursday for the PCI of the LAD. Echocardiogram is pending. Blood pressure 129/72, heart rate 63, pulse ox 97% on room air. Repeat blood work reveals hemoglobin 13.2, creatinine 0.56. A1c 5.4, triglycerides 171, cholesterol 202, LDL 127, HDL 40. PHYSICAL EXAM: VITAL SIGNS: Reviewed. GENERAL: Well-developed in no acute distress. HEENT: Head is normocephalic. Pupils are equal, round. Sclerae anicteric. Mucous membranes of the mouth are moist. Neck supple. No JVD or thyromegaly LUNGS: Respirations even and unlabored. Lungs essentially clear to auscultation bilaterally. HEART: Regular rate and rhythm. S1 and S2 heard. ABDOMEN: Soft. Nondistended. Nontender. EXTREMITIES: Normal range of motion. No clubbing or cyanosis. Peripheral pulses intact. No lower extremity edema NEUROLOGIC: Awake and alert. Oriented x 3. ASSESSMENT: NSTEMI status post cardiac cath 05/13 Coronary artery disease status post PCI of the mid left circumflex on 05/13 with plan for PCI of the LAD on Thursday Borderline diabetes per patient PLAN: Obtain 2D echo to assess cardiac structure and function Continue patient on aspirin 81 mg daily, atorvastatin 80 mg at bedtime, Lopressor 12.5 mg twice daily, Effient 10 mg daily Schedule patient for PCI of the LAD on Thursday with Dr. Rene. N.p.o. after midnight for Thursday morning procedure Further recommendations pending patient course Nurse practitioner note has been reviewed by physician. Signing provider agrees with the documented findings, assessment, and plan of care documented by ENGINE TEST CELL TECHNICIAN as a scribe. Objective - Vital Signs Vital signs: Vital Signs Temp 98.4 F 05/14/24 08:15 Pulse 63 05/14/24 08:15 Resp 16 05/14/24 08:15 BP 129/72 05/14/24 08:15 Pulse Ox 97 05/14/24 08:15 FiO2 Intake & Output 05/13/24 05/14/24 05/14/24 18:59 06:59 18:59 Intake Total 727.169 500 10 Output Total 600 Balance 727.169 -100 10 Weight 67.585 kg 68.6 kg Intake: IV 700 20 10 Invasive Line 1 20 10 Intake, IV Titration 27.169 Amount Heparin Sod,Pork in 0.45% 27.169 NaCl 25,000 unit In 0.45 % NaCl 1 250ml.bag @ 12 UNITS/KG/HR 8.11 mls/hr IV .Q24H AYO Rx#: [id number] Oral 480 Output: Urine 600 Other: Voiding Method Toilet Toilet Diaper Diaper Incontinent Incontinent # Voids 2 - Labs CBC & Chem 7: 05/14/24 05:42 05/14/24 05:42 Labs: Abnormal Lab Results - Last 24 Hours (Table) 05/13/24 05/13/24 05/13/24 Range/Units 08:41 11:35 15:01 Plt Count (150-450) k/uL Sodium (137-145) mmol/L Chloride (98-107) mmol/L AST (14-36) U/L Troponin I 0.821 H* 3.010 H* (0.000-0.034) ng/mL Total Protein (6.3-8.2) g/dL Albumin (3.5-5.0) g/dL Triglycerides 171.00 H (0.00-149.00) mg/dL Cholesterol 202.00 H (0.00-200.00) mg/dL Ur Specific [place] (1.001-1.035) Urine Ketones (Negative) Urine Blood (Negative) Urine Nitrite (Negative) Urine RBC (0-5) /hpf Urine WBC (0-5) /hpf Urine Bacteria (None) /hpf 05/13/24 05/14/24 05/14/24 Range/Units 22:31 05:42 05:42 Plt Count 105 L (150-450) k/uL Sodium 135 L (137-145) mmol/L Chloride 108 H (98-107) mmol/L AST 105 H (14-36) U/L Troponin I (0.000-0.034) ng/mL Total Protein 5.9 L (6.3-8.2) g/dL Albumin 3.2 L (3.5-5.0) g/dL Triglycerides (0.00-149.00) mg/dL Cholesterol (0.00-200.00) mg/dL Ur Specific [place] 1.050 H (1.001-1.035) Urine Ketones 1+ H (Negative) Urine Blood Small H (Negative) Urine Nitrite Positive H (Negative) Urine RBC 7 H (0-5) /hpf Urine WBC 8 H (0-5) /hpf Urine Bacteria Rare H (None) /hpf
[2024-05-14 12:51] LABS: Chol/HDL Ratio 4.86 Ratio; LDL Cholesterol,Calculated 79.5 mg/dL (0.0-131.0)
[2024-05-14 14:31] VITALS: BMI 23.6
--- NOTE | 2024-05-14 16:18 | P.PN ---
Subjective Progress Note Date: 05/14/24 History of present illness; patient 69-year-old lady with past medical history significant for kidney stone who presents to ER for chest pain. Patient stated that she was all right this morning when she was woken up from sleep with chest pain that was central in location, pressure-like, nonradiating, no aggravating or relieving factor associated with chest pain. Patient was complaining of shortness of breath that time. Patient also had nausea and vomiting. Patient stated that she has a lot of stress going on at home. Denies any fever or chills. There is no complaint of orthopnea or PND. Patient denies any swelling of feet. Because of this chest pain, patient brought to the ED Initial lab work done in the ER showed WBC 9.8, hemoglobin 15.2, platelet count 133, sodium 130, potassium 3.5, BUN 16, creatinine 0.59, glucose 163, calcium 9.3, Agnesian 1.8, AST 21, ALT 17, Influenza A not detected Influenza B not detected RSV not detected COVID-19 not detected EKG done in the ER showed heart rate of 67, no ST segment elevation or depression seen, no T-wave inversions seen. Chest x-ray done in the ER showed no acute cardiopulmonary process Patient admitted to internal medicine service 05/14/2024 Patient is eval obtain follow-up in the medical floor. She is not complaining of any chest pressure or shortness of breath at this time. She is status post stent x 2 to the proximal and mid circumflex. Patient will be going for a stenting of the LAD on Thursday. She has been started on dual antiplatelet therapy with aspirin and Effient. Patient's main complaint is that an IV had infiltrated in her left antecubital fossa and it is quite swollen red and tender. We will monitor this closely. Cholesterol panel comes back showing triglyceride level of 222 cholesterol 156, LDL 79.5 and an HDL 32.10. REVIEW OF SYSTEMS: CONSTITUTIONAL: No fever, no malaise, no fatigue. HEENT: No recent visual problems or hearing problems. Denied any sore throat. CARDIOVASCULAR: As mentioned above PULMONARY: Mentioned above GASTROINTESTINAL: No diarrhea, no nausea, no vomiting, no abdominal pain. NEUROLOGICAL: No headaches, no weakness, no numbness. PHYSICAL EXAMINATION: GENERAL: The patient is alert and oriented x3, not in any acute distress. Well developed, well nourished. HEENT: Pupils are round and equally reacting to light. EOMI. No scleral icterus. No conjunctival pallor. Normocephalic, atraumatic. No pharyngeal erythema. No thyromegaly. CARDIOVASCULAR: S1 and S2 present. No murmurs, rubs, or gallops. PULMONARY: Chest is clear to auscultation, no wheezing or crackles. ABDOMEN: Soft, nontender, nondistended, normoactive bowel sounds. No palpable organomegaly. MUSCULOSKELETAL: No joint swelling or deformity. EXTREMITIES: No cyanosis, clubbing, or pedal edema. NEUROLOGICAL: Gross neurological examination did not reveal any focal deficits. SKIN: No rashes. Assessment and plan Chest pain patient is status post stenting of the left proximal circumflex, left mid circumflex and will be going for an LAD stent on Thursday History of kidney stones History of melanoma IV infiltration Recent lithotripsy for kidney stones x 1 week ago GI prophylaxis Patient is status post PCI Has been started on dual antiplatelet therapy with aspirin and statin Continue dose statin therapy Continue with cold warm packs to the IV infiltration site and Tylenol as needed. Patient be going back to the Seismograph Operator on Thursday for stenting of the LAD. Echocardiogram has been taken and currently pending. Labs and medication were reviewed.. Continue same treatment. Continue with symptomatic treatment. Resume home medication. Monitor labs and vitals. DVT and GI prophylaxis. Further recommendations as per clinical course of the patient Dictation was produced using [employer] dictation software. please excuse any grammatical, word or spelling errors. Objective - Vital Signs Vital signs: Vital Signs Temp 98.2 F 05/14/24 15:16 Pulse 75 05/14/24 15:16 Resp 16 05/14/24 15:16 BP 148/66 05/14/24 15:16 Pulse Ox 97 05/14/24 15:16 FiO2 Intake & Output 05/13/24 05/14/24 05/14/24 18:59 06:59 18:59 Intake Total 727.169 500 790 Output Total 600 Balance 727.169 -100 790 Weight 67.585 kg 68.6 kg 68.6 kg Intake: IV 700 20 10 Invasive Line 1 20 10 Intake, IV Titration 27.169 Amount Heparin Sod,Pork in 0.45% 27.169 NaCl 25,000 unit In 0.45 % NaCl 1 250ml.bag @ 12 UNITS/KG/HR 8.11 mls/hr IV .Q24H [facility] Rx#: [id number] Oral 480 780 Output: Urine 600 Other: Voiding Method Toilet Toilet Diaper Diaper Incontinent Incontinent # Voids 2 3 - Labs CBC & Chem 7: 05/14/24 05:42 05/14/24 05:42 Labs: Abnormal Lab Results - Last 24 Hours (Table) 05/13/24 05/14/24 05/14/24 Range/Units 22:31 05:42 05:42 Plt Count 105 L (150-450) k/uL Sodium 135 L (137-145) mmol/L Chloride 108 H (98-107) mmol/L AST 105 H (14-36) U/L Total Protein 5.9 L (6.3-8.2) g/dL Albumin 3.2 L (3.5-5.0) g/dL Triglycerides 222.00 H (0.00-149.00) mg/dL VLDL Cholesterol, Calc 44.40 H (5.00-40.00) mg/dL HDL Cholesterol 32.10 L (40.00-60.00) mg/dL Ur Specific [place] 1.050 H (1.001-1.035) Urine Ketones 1+ H (Negative) Urine Blood Small H (Negative) Urine Nitrite Positive H (Negative) Urine RBC 7 H (0-5) /hpf Urine WBC 8 H (0-5) /hpf Urine Bacteria Rare H (None) /hpf Assessment and Plan Time with Patient: Less than 30
[2024-05-14] MEDS: ALPRAZolam 0.5 MG TAB PO PRN (16:29)
--- NOTE | 2024-05-15 08:48 | CA ---
Transthoracic Echo Report Name: Celeste Borja Age: 69 Gender: F : 1955 Exam Date: 05/14/2024 11:12 Exam Location: [place] Echo Ht (in): 67 Wt (lb): 149 Ordering Physician: Jonathan Minor MD Attending/Referring Phys: Volunteer Fire Fighter Elda Agrawal RDCS Procedure CPT: Indications: Chest Pain Cardiac Hx: Technical Quality: Good Contrast 1: Total Dose (mL): Contrast 2: Total Dose (mL): MEASUREMENTS (Male / Female) Normal Values 2D ECHO LV Diastolic Diameter PLAX 4.7 cm 4.2 - 5.9 / 3.9 - 5.3 cm LV Systolic Diameter PLAX 3.6 cm IVS Diastolic Thickness 1.0 cm 0.6 - 1.0 / 0.6 - 0.9 cm LVPW Diastolic Thickness 1.2 cm 0.6 - 1.0 / 0.6 - 0.9 cm LV Relative Wall Thickness 0.5 RV Internal Dim ED PLAX 1.8 cm LA Systolic Diameter LX 4.5 cm 3.0 - 4.0 / 2.7 - 3.8 cm LV Diastolic Volume MOD BP 74.7 cm??? 67 - 155 / 56 - 104 cm??? LV Systolic Volume MOD BP 35.7 cm??? 22 - 58 / 19 - 49 cm??? LV Ejection Fraction MOD BP 52.2 % >= 55 % LV Cardiac Index MOD BP 1239.8 cm???/min???m??? LV Diastolic Volume MOD 4C 77.6 cm??? LV Systolic Volume MOD 4C 43.9 cm??? LV Ejection Fraction MOD 4C 43.4 % LV Cardiac Index MOD 4C 1070.4 cm???/min???m??? LV Diastolic Length 4C 7.3 cm LV Systolic Length 4C 6.9 cm LV Diastolic Volume MOD 2C 71.7 cm??? LV Systolic Volume MOD 2C 29.0 cm??? LV Ejection Fraction MOD 2C 59.5 % LV Cardiac Index MOD 2C 1357.5 cm???/min???m??? LV Diastolic Length 2C 7.4 cm LV Systolic Length 2C 6.7 cm LA Volume 60.1 cm??? 18 - 58 / 22 - 52 cm??? LA Volume Index 33.6 cm???/m??? 16 - 28 cm???/m??? M-MODE Aortic Root Diameter MM 3.0 cm LA Systolic Diameter MM 4.1 cm LA Ao Ratio MM 1.4 AV Cusp Separation MM 1.7 cm DOPPLER MV Area PHT 2.5 cm??? Mitral E Point Velocity 88.6 cm/s Mitral A Point Velocity 81.0 cm/s Mitral E to A Ratio 1.1 MV Deceleration Time 302.7 ms TR Peak Velocity 194.4 cm/s TR Peak Gradient 15.1 mmHg FINDINGS Left Ventricle Left ventricular ejection fraction is estimated at 50-55 %. Mildly increased septal wall thickness. Mildly increased posterior wall thickness. Mildly decreased left ventricular ejection fraction. Left ventricular cavity size normal. Mildly reduced global left ventricular systolic function. Right Ventricle Normal right ventricular size and function. Right ventricular systolic pressure within normal limits. Right Atrium Normal right atrial size. Left Atrium Moderately increased left atrial diameter. Mildly increased left atrial volume. Mitral Valve Structurally normal mitral valve. Moderate mitral regurgitation. No mitral stenosis. Aortic Valve Trileaflet aortic valve. No aortic valve stenosis or regurgitation. Tricuspid Valve Structurally normal tricuspid valve. No tricuspid stenosis. Mild tricuspid regurgitation. Pulmonic Valve Structurally normal pulmonic valve. Trace pulmonic regurgitation. No pulmonic stenosis. Pericardium No pericardial or pleural effusion. Aorta Normal size aortic root and proximal ascending aorta. CONCLUSIONS LV EF 50-55%, mildly reduced global LV function Moderate MR Mild TR Previewed by: Dr. Ken Avelar MD (Electronically Signed) Final Date: 15 May 2024 08:47
--- NOTE | 2024-05-15 10:45 | US ---
EXAMINATION TYPE: US venous doppler duplex UE LT DATE OF EXAM: 05/15/2024 COMPARISON: NONE CLINICAL INDICATION: Female, 69 years old with history of infiltrated IV left AC with erythema; redne ss, pain left arm. recent IV TECHNIQUE: Grayscale, color Doppler and spectral Doppler imaging of the upper extremity. SIDE PERFORMED: left VESSELS IMAGED: IJV Subclavian Vein Axilla Vein Brachial Vein(s) Radial Paired Veins Ulnar Paired Veins Cephalic Vein* Basilic Vein* (*superficial vessels) FINDINGS: Left Arm: No evidence of DVT with color flow and compressibility involving the internal jugular, subc lavian, axillary, and brachial veins. There is compressibility of the left radial and ulnar veins. Mu ltiple branches basilic vein. superificial thrombus left basilic vein and left cephalic vein with lac k of color flow with thrombus and noncompressibility IMPRESSION: 1. No ultrasound evidence for deep venous thrombosis of the left upper extremity. 2. Superficial venous thrombosis of the left basilic and cephalic veins. [facility], , 05/15/2024 10:43 AM
--- NOTE | 2024-05-15 12:20 | P.PN ---
Subjective Progress Note Date: 05/15/24 HISTORY OF PRESENT ILLNESS: This is a 69-year-old female with a past medical history significant for bor derline diabetes per patient. Patient does not follow with a rn shift mgr. We have been asked to see the patient in consultation for chest pain. Patient examined at the bedside in the emergency room. Patient states that she moved up from [place] in October and since that time she has been having intermittent chest pain. She does report that she has been extremely stressed out lately. She states she woke up this morning from a sleep with pain in the middle of her chest. She denies any radiation of the pain. She states that the pain lasted until she came to the emergency room and received morphine. She reports a family history of CAD. She states that her dad had a CABG when he was in his 80s. She is a non-smoker. She does report marijuana use. Patient states that she takes no prescription medications. DIAGNOSTICS: - EKG reveals sinus mechanism with right bundle branch block. Left anterior fascicular block. LVH. - Chest xray negative for acute process. - Laboratory data: WBC 7.8. Hemoglobin 15.2. Platelet count 133. Sodium 138. Potassium 3.5. BUN 16. Creatinine 0.59. Magnesium 1.8. Troponin negative x 1. - Current home cardiac medications include none. - No previous echocardiogram, stress test, or cardiac catheterization available in EMR for review 05/14 Patient seen and examined on the cardiac stepdown unit. Patient denies having chest pain chest pressure. Yesterday, patient underwent cardiac catheterization with Dr. Rene which revealed TRACK CAR OPERATOR of the RCA which fills by collateral mainly coming from the LAD, acute total occlusion of the left circumflex status post successful PCI of the left circumflex, also, severe disease involving the proximal left anterior descending artery and patient will need to go for PCI of the LAD on a different session. Plan to avoid radial right sided approach for the next procedure. Patient is scheduled for Thursday for the PCI of the LAD. Echocardiogram is pending. Blood pressure 129/72, heart rate 63, pulse ox 97% on room air. Repeat blood work reveals hemoglobin 13.2, creatinine 0.56. A1c 5.4, triglycerides 171, cholesterol 202, LDL 127, HDL 40. 05/15 Patient seen and examined. Blood pressure 130/54, heart rate 86, pulse ox 96% on room air. Patient is scheduled for PCI of the LAD on Thursday with Dr. Rene. No complaints of chest pain or chest pressure. Echocardiogram report reviewed with the patient. EF is 50 to 55%, moderate MR, mild TR. PHYSICAL EXAM: VITAL SIGNS: Reviewed. GENERAL: Well-developed in no acute distress. HEENT: Head is normocephalic. Pupils are equal, round. Sclerae anicteric. Mucous membranes of the mouth are moist. Neck supple. No JVD or thyromegaly LUNGS: Respirations even and unlabored. Lungs essentially clear to auscultation bilaterally. HEART: Regular rate and rhythm. S1 and S2 heard. ABDOMEN: Soft. Nondistended. Nontender. EXTREMITIES: Normal range of motion. No clubbing or cyanosis. Peripheral pulses intact. No lower extremity edema NEUROLOGIC: Awake and alert. Oriented x 3. ASSESSMENT: NSTEMI status post cardiac cath 05/13 Coronary artery disease status post PCI of the mid left circumflex on 05/13 with plan for PCI of the LAD on Thursday Borderline diabetes per patient PLAN: Echocardiogram reveals EF 50 to 55%, moderate MR, mild TR Continue patient on aspirin 81 mg daily, atorvastatin 80 mg at bedtime, Lopressor 12.5 mg twice daily, Effient 10 mg daily Schedule patient for PCI of the LAD on Thursday with Dr. Rene. N.p.o. after midnight for Thursday morning procedure Further recommendations pending patient course Nurse practitioner note has been reviewed by physician. Signing provider agrees with the documented findings, assessment, and plan of care documented by SUB MASTER as a scribe. Objective - Vital Signs Vital signs: Vital Signs Temp 97.8 F 05/15/24 08:48 Pulse 86 05/15/24 08:50 Resp 18 05/15/24 08:50 BP 130/54 05/15/24 08:48 Pulse Ox 96 05/15/24 08:48 FiO2 Intake & Output 05/14/24 05/15/24 05/15/24 18:59 06:59 18:59 Intake Total 790 20 10 Balance 790 20 10 Weight 68.6 kg Intake: IV 10 20 10 Invasive Line 1 10 Invasive Line 2 20 10 Oral 780 Other: Voiding Method Toilet Toilet Toilet Diaper Diaper Diaper Incontinent Incontinent Incontinent # Voids 3 1 1 # Bowel Movements 1 - Labs CBC & Chem 7: 05/14/24 05:42 05/14/24 05:42 Labs: Abnormal Lab Results - Last 24 Hours (Table) 05/14/24 Range/Units 05:42 Triglycerides 222.00 H (0.00-149.00) mg/dL VLDL Cholesterol, Calc 44.40 H (5.00-40.00) mg/dL HDL Cholesterol 32.10 L (40.00-60.00) mg/dL
--- NOTE | 2024-05-15 13:54 | P.PN ---
Subjective Progress Note Date: 05/15/24 History of present illness; patient 69-year-old lady with past medical history significant for kidney stone who presents to ER for chest pain. Patient stated that she was all right this morning when she was woken up from sleep with chest pain that was central in location, pressure-like, nonradiating, no aggravating or relieving factor associated with chest pain. Patient was complaining of shortness of breath that time. Patient also had nausea and vomiting. Patient stated that she has a lot of stress going on at home. Denies any fever or chills. There is no complaint of orthopnea or PND. Patient denies any swelling of feet. Because of this chest pain, patient brought to the ED Initial lab work done in the ER showed WBC 9.8, hemoglobin 15.2, platelet count 133, sodium 130, potassium 3.5, BUN 16, creatinine 0.59, glucose 163, calcium 9.3, Agnesian 1.8, AST 21, ALT 17, Influenza A not detected Influenza B not detected RSV not detected COVID-19 not detected EKG done in the ER showed heart rate of 67, no ST segment elevation or depression seen, no T-wave inversions seen. Chest x-ray done in the ER showed no acute cardiopulmonary process Patient admitted to internal medicine service 05/14/2024 Patient is eval obtain follow-up in the medical floor. She is not complaining of any chest pressure or shortness of breath at this time. She is status post stent x 2 to the proximal and mid circumflex. Patient will be going for a stenting of the LAD on Thursday. She has been started on dual antiplatelet therapy with aspirin and Effient. Patient's main complaint is that an IV had infiltrated in her left antecubital fossa and it is quite swollen red and tender. We will monitor this closely. Cholesterol panel comes back showing triglyceride level of 222 cholesterol 156, LDL 79.5 and an HDL 32.10. 05/15/2024 Patient is evaluated in follow-up in the medical floor. Patient continues to report significant redness and swelling to the left antecubital fossa. A venous Doppler was done which reveals a superficial venous thrombosis of the left basilic and cephalic veins. Patient received a dose of Xanax with [place] and she is not reporting any pain to the arm currently. Echocardiogram reveals and ejection fraction of 50 to 55% with decreased global LV function with moderate mitral regurgitation and mild tricuspid regurgitation. REVIEW OF SYSTEMS: CONSTITUTIONAL: No fever, no malaise, no fatigue. HEENT: No recent visual problems or hearing problems. Denied any sore throat. CARDIOVASCULAR: As mentioned above PULMONARY: Mentioned above GASTROINTESTINAL: No diarrhea, no nausea, no vomiting, no abdominal pain. NEUROLOGICAL: No headaches, no weakness, no numbness. PHYSICAL EXAMINATION: GENERAL: The patient is alert and oriented x3, not in any acute distress. Well developed, well nourished. HEENT: Pupils are round and equally reacting to light. EOMI. No scleral icterus. No conjunctival pallor. Normocephalic, atraumatic. No pharyngeal erythema. No thyromegaly. CARDIOVASCULAR: S1 and S2 present. No murmurs, rubs, or gallops. PULMONARY: Chest is clear to auscultation, no wheezing or crackles. ABDOMEN: Soft, nontender, nondistended, normoactive bowel sounds. No palpable organomegaly. MUSCULOSKELETAL: No joint swelling or deformity. EXTREMITIES: No cyanosis, clubbing, or pedal edema. NEUROLOGICAL: Gross neurological examination did not reveal any focal deficits. SKIN: No rashes. Redness and swelling to the left antecubital fossa with tenderness to palpation Assessment and plan Chest pain patient is status post stenting of the left proximal circumflex, left mid circumflex and will be going for an LAD stent on Thursday Superficial venous thrombosis of the left basilic and cephalic veins with evidence of thrombophlebitis History of kidney stones History of melanoma IV infiltration Recent lithotripsy for kidney stones x 1 week ago GI prophylaxis Patient is status post PCI Has been started on dual antiplatelet therapy with aspirin and statin Continue dose statin therapy Continue with cold warm packs to the IV infiltration site and Tylenol as needed. Doxycycline twice daily for the left antecubital thrombophlebitis Patient be going back to the Telephone Surveyor on Thursday for stenting of the LAD. Echocardiogram has been taken Labs and medication were reviewed.. Continue same treatment. Continue with symptomatic treatment. Resume home medication. Monitor labs and vitals. DVT and GI prophylaxis. Further recommendations as per clinical course of the patient Dictation was produced using [employer] dictation software. please excuse any gram matical, word or spelling errors. Objective - Vital Signs Vital signs: Vital Signs Temp 97.8 F 05/15/24 08:48 Pulse 80 05/15/24 13:19 Resp 18 05/15/24 13:19 BP 110/57 05/15/24 12:00 Pulse Ox 97 05/15/24 12:00 FiO2 Intake & Output 05/14/24 05/15/24 05/15/24 18:59 06:59 18:59 Intake Total 790 20 138 Balance 790 20 138 Weight 68.6 kg Intake: IV 10 20 20 Invasive Line 1 10 Invasive Line 2 20 20 Oral 780 118 Other: Voiding Method Toilet Toilet Toilet Diaper Diaper Diaper Incontinent Incontinent Incontinent # Voids 3 1 1 # Bowel Movements 1 - Labs CBC & Chem 7: 05/14/24 05:42 05/14/24 05:42 Assessment and Plan Time with Patient: Less than 30
[2024-05-15] MEDS: DOXYCYCLINE 100 MG TABLET PO SCH (14:15)
[2024-05-15] MEDS: HYDROmorphone 1 MG/ML 1 ML SYRINGE IVP STA (14:36)
[2024-05-15] MEDS: ACETAMINOPHEN TAB 325 MG TAB PO PRN (15:43)
[2024-05-15 20:13] LABS: Glucose,Whole Blood 136 mg/dL (70-110)
[2024-05-15] MEDS: SODIUM CHLORIDE 0.9% 1,000 ML in EMPTY BAG 1 BAG IV SCH (20:22)
[2024-05-15] MEDS: HEPARIN SODIUM 1,000 UN/ML (10ML VL) IV ONE (20:26)
[2024-05-15] MEDS: DILTIAZEM DRIP BOLUS FROM BAG 1 MG SOLN IV ONE (20:26)
[2024-05-15] MEDS: DILTIAZEM 125 MG in SODIUM CHLORIDE 0.9% 100 ML IV SCH (20:31)
[2024-05-15] MEDS: HEPARIN SOD,PORK IN 0.45% NACL 25,000 UNIT in 0.45% NACL 1 250ML.BAG IV SCH (20:32)
[2024-05-16 03:49] LABS: HCT 43.8 % (34.0-46.0); HGB 13.9 gm/dL (11.4-16.0); MCH 30.2 pg (25.0-35.0); MCHC 31.8 g/dL (31.0-37.0); MCV 95.1 fL (80.0-100.0); Mean Platelet Volume 8.5; Platelet Count 107 k/uL (150-450); RDW 12.7 % (11.5-15.5); WBC 11.1 k/uL (3.8-10.6)
[2024-05-16] MEDS: HEPARIN SODIUM 1,000 UN/ML (10ML VL) IV PRN (03:57)
[2024-05-16 04:14] LABS: African American GFR (CKD) >90 (>60 ml/min/1.73 sqM); Anion Gap 10 mmol/L; Blood Urea Nitrogen 10 mg/dL (7-17); Calcium 8.9 mg/dL (8.4-10.2); Carbon Dioxide 21 mmol/L (22-30); Chloride 100 mmol/L (98-107); Glucose 119 mg/dL (74-99); Non-African American GFR(CKD) >90 (>60 ml/min/1.73 sqM); Potassium 3.2 mmol/L (3.5-5.1); Sodium 131 mmol/L (137-145)
[2024-05-16 04:27] LABS: Band Neutrophils % 15 %; Lymphocytes # (M) 1.11 k/uL (1.0-4.8); Monocytes # (M) 0.56 k/uL (0-1.0); Neutrophils % (M) 70 %; Nucleated Red Blood Cells 0 /100 WBC (0-0); Total Cells Counted 200
[2024-05-16] MEDS: ASPIRIN 325 MG TAB PO ONE (06:14)
[2024-05-16] MEDS: ATORVASTATIN 80 MG TAB PO ONE (06:14)
[2024-05-16 06:24] LABS: Glucose,Whole Blood 125 mg/dL (70-110)
[2024-05-16] MEDS: HEPARIN SODIUM,PORCINE (1 ML) 2,500 UNIT in SODIUM CHLORIDE 0.9% 250 ML IRRIGATION PRN (07:12)
[2024-05-16] MEDS: HEPARIN SODIUM,PORCINE 10,000 UNIT in SODIUM CHLORIDE 0.9% 1,000 ML IRRIGATION PRN (07:12)
[2024-05-16] MEDS: MIDAZOLAM 2 MG/2 ML VIAL IVP ONE (07:56)
[2024-05-16] MEDS: fentaNYL (PF) 50 MCG/ML 2 ML AMP IVP ONE (07:56)
[2024-05-16] MEDS: LIDOCAINE 1% INJ 10MG/ML (20 ML MDV) SQ ONE (07:58)
[2024-05-16] MEDS: MORPHINE SULFATE 4 MG/ML SYRINGE IVP ONE (08:00)
[2024-05-16] MEDS: HEPARIN SODIUM 1,000 UN/ML (10ML VL) IV ONE (08:04)
[2024-05-16] MEDS ORDERED: MAG HYDROX/AL HYDROX/SIMETH 30 ML CUP PO PRN (08:43)
[2024-05-16] MEDS ORDERED: ZOLPIDEM 5 MG TAB PO PRN (08:43)
[2024-05-16] MEDS ORDERED: RX INFO: IV CONTRAST WAS GIVEN 1 EACH MISC MISCELLANE PRN (08:43)
[2024-05-16] MEDS ORDERED: NITROGLYCERIN SL TABS 0.4 MG TAB SUBLINGUAL PRN (08:43)
[2024-05-16] MEDS ORDERED: ATROPINE SULFATE 0.1 MG/ML 10ML SYRINGE IV PRN (08:43)
--- NOTE | 2024-05-16 08:47 | P.PCN ---
Date of Procedure: 05/16/24 Operative Findings: PERCUTANEOUS CORONARY INTERVENTION Performing physician Nando Rene M.D. Procedure Performed: 1. Successful stenting of the mid and proximal LAD using 3.5 x 33 and 3.5 x 8 mm Xience drug-eluting stent with an excellent angiographic results. 2. Adjunctive use of IVUS and lithotripsy balloon 3. Ultrasound-guided access of the right common femoral artery and selective right common femoral artery angiogram Indication: Severe CAD in the symptomatic 69-year-old female patient was admitted to the hospital few days ago with non-STEMI and underwent PCI of the LCx and she was brought today to undergo PCI of the LAD. Approach: Right common femoral artery Complications: None Level of Sedation: Moderate with a sedation length of 48 minutes Procedure Discussion: After obtaining informed consent the patient was brought to the cardiac Manager Of Network with right common femoral artery was cannulated using micropuncture technique under ultrasound guidance a micropuncture wire passed easily then I placed a 6 [place] 11 cm sheath at the right common femoral artery. After that I did start anticoagulation using heparin with continuous ACT monitoring. Subsequently I did engage the left main using JL 4 guiding catheter with I did wire the LAD using a run-through wire. IVUS was performed and showed a diameter around 3.5 mm in the very proximal portion but the IVUS could not be advanced distal to the proximal LAD. I did predilatation using 3.0 mm balloon but the balloon was unable to open the lesion in the very proximal LAD and for that reason I used lithotripsy balloon. With that I was able to open the LAD in the proximal portion. After that I deployed a 3.5 x 33 mm Xience HEMANT which was postdilated using 3.5 mm NC balloon with angiogram showing dissection involving the proximal edge of the stent which was covered using 3.5 x 8 mm Xience. IVUS was performed and showed good angiographic results and the procedure was completed with no complication Postprocedure Management: 1. Dual antiplatelet therapy using aspirin and Effient for at least 12 months 2. Aggressive cholesterol control 3. Risk factors modification
[2024-05-16] MEDS: IOPAMIDOL-370 100ML BTL INJ ONE (08:49)
[2024-05-16] MEDS: SODIUM CHLORIDE 0.9% 1,000 ML in EMPTY BAG 1 BAG IV SCH (09:29)
[2024-05-16 11:16] LABS: Glucose,Whole Blood 97 mg/dL (70-110)
--- NOTE | 2024-05-16 12:49 | P.PN ---
Subjective HISTORY OF PRESENT ILLNESS: This is a 69-year-old female with a past medical history significant for borderline diabetes per patient. Patient does not follow with a therapy administrative assistant. We have been asked to see the patient in consultation for chest pain. Patient examined at the bedside in the emergency room. Patient states that she moved up from [place] in October and since that time she has been having intermittent chest pain. She does report that she has been extremely stressed out lately. She states she woke up this morning from a sleep with pain in the middle of her chest. She denies any radiation of the pain. She states that the pain lasted until she came to the emergency room and received morphine. She reports a family history of CAD. She states that her dad had a CABG when he was in his 80s. She is a non-smoker. She does report marijuana use. Patient states that she takes no prescription medications. DIAGNOSTICS: - EKG reveals sinus mechanism with right bundle branch block. Left anterior fascicular block. LVH. - Chest xray negative for acute process. - Laboratory data: WBC 7.8. Hemoglobin 15.2. Platelet count 133. Sodium 138. Potassium 3.5. BUN 16. Creatinine 0.59. Magnesium 1.8. Troponin negative x 1. - Current home cardiac medications include none. - No previous echocardiogram, stress test, or cardiac catheterization available in EMR for review 05/14 Patient seen and examined on the cardiac stepdown unit. Patient denies having chest pain chest pressure. Yesterday, patient underwent cardiac catheterization with Dr. 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 Plan to avoid radial right sided approach for the next procedure. Patient is scheduled for Thursday for the PCI of the LAD. Echocardiogram is pending. Blood pressure 129/72, heart rate 63, pulse ox 97% on room air. Repeat blood work reveals hemoglobin 13.2, creatinine 0.56. A1c 5.4, triglycerides 171, cholesterol 202, LDL 127, HDL 40. 05/15 Patient seen and examined. Blood pressure 130/54, heart rate 86, pulse ox 96% on room air. Patient is scheduled for PCI of the LAD on Thursday with Dr. Rene. No complaints of chest pain or chest pressure. Echocardiogram report reviewed with the patient. EF is 50 to 55%, moderate MR, mild TR. 05/16/2024 Patient is status post cardiac catheterization today with Dr. Rene with PCI of the LAD. Patient examined this morning to bedside. Patient currently denies chest pain or pressure. She denies shortness of breath. Patient went into atrial fibrillation with RVR yesterday she was started on IV heparin and IV Cardizem. She subsequently converted to sinus mechanism and is maintaining sinus mechanism at the time of examination. She is no known history of atrial fibrillation. PHYSICAL EXAM: VITAL SIGNS: Reviewed. GENERAL: Well-developed in no acute distress. HEENT: Head is normocephalic. Pupils are equal, round. Sclerae anicteric. Mucous membranes of the mouth are moist. Neck supple. No JVD or thyromegaly LUNGS: Respirations even and unlabored. Lungs essentially clear to auscultation bilaterally. HEART: Regular rate and rhythm. S1 and S2 heard. ABDOMEN: Soft. Nondistended. Nontender. EXTREMITIES: Normal range of motion. No clubbing or cyanosis. Peripheral pulses intact. No lower extremity edema NEUROLOGIC: Awake and alert. Oriented x 3. ASSESSMENT: NSTEMI, status post PCI of the mid left circumflex on 05/13, and PCI of LAD 05/16/2024 Hyperlipidemia, cholesterol 202, LDL 127 Moderate mitral regurgitation New onset atrial fibrillation, currently maintaining sinus mechanism Borderline diabetes per patient, hemoglobin A1c 5.4 PLAN: Continue dual antiplatelet therapy with aspirin and Effient Continue high intensity statin. LDL goal less than 70. Add Eliquis 2.5 mg twice a day (decreased dose due to triple therapy) Discontinue IV heparin and IV Cardizem Continue additional cardiac medications including metoprolol tartrate Check TSH Continue telemetry monitoring Patient to receive 30 day event monitor at discharge to assess A-fib burden Further recommendations pending patient course Patient to follow-up postdischarge with Dr. Rene Nurse practitioner note has been reviewed by physician. Signing provider agrees with the documented findings, assessment, and plan of care documented by METER AND SERVICE LINE INSPECTOR as a scribe. Objective - Vital Signs Vital signs: Vital Signs Temp 97.3 F L 05/16/24 03:54 Pulse 73 05/16/24 11:02 Resp 16 05/16/24 12:02 BP 132/69 05/16/24 12:02 Pulse Ox 98 05/16/24 12:02 FiO2 Intake & Output 05/15/24 05/16/24 05/16/24 18:59 06:59 18:59 Intake Total 256 101.328 150 Balance 256 101.328 150 Weight 74.8 kg Intake: IV 20 40 150 Invasive Line 2 20 20 Invasive Line 3 20 Intake, IV Titration 61.328 Amount Heparin Sod,Pork in 0.45% 61.328 NaCl 25,000 unit In 0.45 % NaCl 1 250ml.bag @ 12 UNITS/KG/HR 8.232 mls/hr IV .Q24H [facility] Rx#: [id number] Oral 236 Other: Voiding Method Toilet Toilet Diaper Diaper Incontinent Incontinent # Voids 2 2 # Bowel Movements 1 - Labs CBC & Chem 7: 05/16/24 02:47 05/16/24 02:47 Labs: Abnormal Lab Results - Last 24 Hours (Table) 05/15/24 05/16/24 05/16/24 Range/Units 20:12 02:47 02:47 WBC (3.8-10.6) k/uL Plt Count (150-450) k/uL Neutrophils # (Manual) (1.3-7.7) k/uL APTT 32.9 H (22.0-30.0) sec Sodium 131 L (137-145) mmol/L Potassium 3.2 L (3.5-5.1) mmol/L Carbon Dioxide 21 L (22-30) mmol/L Glucose 119 H (74-99) mg/dL POC Glucose (mg/dL) 136 H (70-110) mg/dL 05/16/24 05/16/24 05/16/24 Range/Units 02:47 06:22 09:51 WBC 11.1 H (3.8-10.6) k/uL Plt Count 107 L (150-450) k/uL Neutrophils # (Manual) 9.40 H (1.3-7.7) k/uL APTT 90.1 H (22.0-30.0) sec Sodium (137-145) mmol/L Potassium (3.5-5.1) mmol/L Carbon Dioxide (22-30) mmol/L Glucose (74-99) mg/dL POC Glucose (mg/dL) 125 H (70-110) mg/dL
[2024-05-16] MEDS: APIXABAN 2.5 MG TABLET PO SCH (19:37)
[2024-05-16] MEDS ORDERED: CALCIUM CARBONATE 500 MG CHEWABLE PO PRN (20:38)
[2024-05-16] MEDS: CALCIUM CARBONATE 500 MG CHEWABLE PO ONE (23:41)
[2024-05-17 00:29] VITALS: RESP 16
[2024-05-17 08:20] LABS: HCT 38.8 % (34.0-46.0); HGB 12.3 gm/dL (11.4-16.0); MCH 30.5 pg (25.0-35.0); MCHC 31.7 g/dL (31.0-37.0); MCV 96.3 fL (80.0-100.0); Mean Platelet Volume 8.1; Platelet Count 122 k/uL (150-450); RBC 4.03 m/uL (3.80-5.40); RDW 12.9 % (11.5-15.5); WBC 5.3 k/uL (3.8-10.6)
[2024-05-17 08:35] LABS: African American GFR (CKD) >90 (>60 ml/min/1.73 sqM); Anion Gap 5 mmol/L; Blood Urea Nitrogen 9 mg/dL (7-17); Carbon Dioxide 24 mmol/L (22-30); Chloride 105 mmol/L (98-107); Glucose 93 mg/dL (74-99); Non-African American GFR(CKD) >90 (>60 ml/min/1.73 sqM); Potassium 3.2 mmol/L (3.5-5.1); Sodium 134 mmol/L (137-145)
[2024-05-17 09:41] VITALS: TEMP 98.1
[2024-05-17] MEDS: ASPIRIN 81 MG PO SCH (09:51)
[2024-05-17] MEDS ORDERED: Potassium Replacement Protocol 1 EACH MISC MISCELLANE PRN (09:58)
[2024-05-17] MEDS: POTASSIUM CHLORIDE ER 20 MEQ TAB.ER PO SCH (10:32)
[2024-05-17 11:02] LABS: Nucleated Red Blood Cells 0 /100 WBC (0-0)
[2024-05-17 11:26] LABS: Band Neutrophils % 1 %; Eosinophils # (M) 0.21 k/uL (0-0.7); Lymphocytes # (M) 0.58 k/uL (1.0-4.8); Monocytes # (M) 0.48 k/uL (0-1.0); Neutrophils % (M) 77 %; Total Cells Counted 200
[2024-05-17 11:37] LABS: RBC Morphology Normal
--- NOTE | 2024-05-17 12:07 | P.PN ---
Subjective HISTORY OF PRESENT ILLNESS: This is a 69-year-old female with a past medical history significant for borderline diabetes per patient. Patient does not follow with a filter bed placer. We have been asked to see the patient in consultation for chest pain. Patient examined at the bedside in the emergency room. Patient states that she moved up from [place] in October and since that time she has been having intermittent chest pain. She does report that she has been extremely stressed out lately. She states she woke up this morning from a sleep with pain in the middle of her chest. She denies any radiation of the pain. She states that the pain lasted until she came to the emergency room and received morphine. She reports a family history of CAD. She states that her dad had a CABG when he was in his 80s. She is a non-smoker. She does report marijuana use. Patient states that she takes no prescription medications. DIAGNOSTICS: - EKG reveals sinus mechanism with right bundle branch block. Left anterior fascicular block. LVH. - Chest xray negative for acute process. - Laboratory data: WBC 7.8. Hemoglobin 15.2. Platelet count 133. Sodium 138. Potassium 3.5. BUN 16. Creatinine 0.59. Magnesium 1.8. Troponin negative x 1. - Current home cardiac medications include none. - No previous echocardiogram, stress test, or cardiac catheterization available in EMR for review 05/14 Patient seen and examined on the cardiac stepdown unit. Patient denies having chest pain chest pressure. Yesterday, patient underwent cardiac catheterization with Dr. 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 Plan to avoid radial right sided approach for the next procedure. Patient is scheduled for Thursday for the PCI of the LAD. Echocardiogram is pending. Blood pressure 129/72, heart rate 63, pulse ox 97% on room air. Repeat blood work reveals hemoglobin 13.2, creatinine 0.56. A1c 5.4, triglycerides 171, cholesterol 202, LDL 127, HDL 40. 05/15 Patient seen and examined. Blood pressure 130/54, heart rate 86, pulse ox 96% on room air. Patient is scheduled for PCI of the LAD on Thursday with Dr. Rene. No complaints of chest pain or chest pressure. Echocardiogram report reviewed with the patient. EF is 50 to 55%, moderate MR, mild TR. 05/16/2024 Patient is status post cardiac catheterization today with Dr. Rene with PCI of the LAD. Patient examined this morning to bedside. Patient currently denies chest pain or pressure. She denies shortness of breath. Patient went into atrial fibrillation with RVR yesterday she was started on IV heparin and IV Cardizem. She subsequently converted to sinus mechanism and is maintaining sinus mechanism at the time of examination. She is no known history of atrial fibrillation. 05/17/2024 Patient examined this morning the bedside. Patient denies chest pain or pressure. She denies shortness of breath. Patient complains of discomfort to her left arm. Patient has been receiving IV antibiotics for thrombophlebitis. She remains in sinus mechanism. PHYSICAL EXAM: VITAL SIGNS: Reviewed. GENERAL: Well-developed in no acute distress. HEENT: Head is normocephalic. Pupils are equal, round. Sclerae anicteric. Mucous membranes of the mouth are moist. Neck supple. No JVD or thyromegaly LUNGS: Respirations even and unlabored. Lungs essentially clear to auscultation bilaterally. HEART: Regular rate and rhythm. S1 and S2 heard. ABDOMEN: Soft. Nondistended. Nontender. EXTREMITIES: Normal range of motion. No clubbing or cyanosis. Peripheral pulses intact. No lower extremity edema. Left arm with edema and erythema noted. NEUROLOGIC: Awake and alert. Oriented x 3. ASSESSMENT: NSTEMI, status post PCI of the mid left circumflex on 05/13, and PCI of LAD 05/16/2024 Hyperlipidemia, cholesterol 202, LDL 127 Moderate mitral regurgitation New onset atrial fibrillation, currently maintaining sinus Mechanism Borderline diabetes per patient, hemoglobin A1c 5.4 Left arm thrombophlebitis PLAN: Continue dual antiplatelet therapy with aspirin and Effient Continue high intensity statin. LDL goal less than 70. Continue Eliquis 2.5 mg twice a day (decreased dose due to triple therapy) Continue metoprolol Continue telemetry monitoring Patient to receive 30 day event monitor at discharge to assess A-fib burden Further recommendations pending patient course Patient to follow-up postdischarge with Dr. Rene Nurse practitioner note has been reviewed by physician. Signing provider agrees with the documented findings, assessment, and plan of care documented by SPORTS RECRUITER as a scribe. Objective - Vital Signs Vital signs: Vital Signs Temp 98.1 F 05/17/24 09:40 Pulse 85 05/17/24 09:40 Resp 16 05/17/24 09:40 BP 127/73 05/17/24 09:40 Pulse Ox 98 05/17/24 09:40 FiO2 Intake & Output 05/16/24 05/17/24 05/17/24 18:59 06:59 18:59 Intake Total 695 240 Balance 695 240 Weight 74 kg Intake: IV 575 Sodium Chloride 0.9% 1, 375 000 ml In Empty Bag 1 bag @ 75 mls/hr IV .[id number] [facility] Rx#:[id number] ceFAZolin 1,000 mg In 50 Sodium Chloride 0.9% 50 ml @ 100 mls/hr IVPB Q8HR [facility] Rx#:[id number] Oral 120 240 Other: Voiding Method Toilet Toilet Diaper Diaper Incontinent Incontinent # Voids 2 1 - Labs CBC & Chem 7: 05/17/24 07:06 05/17/24 07:06 Labs: Abnormal Lab Results - Last 24 Hours (Table) 05/17/24 05/17/24 Range/Units 07:06 07:06 Plt Count 122 L (150-450) k/uL Lymphocytes # (Manual) 0.58 L (1.0-4.8) k/uL Sodium 134 L (137-145) mmol/L Potassium 3.2 L (3.5-5.1) mmol/L Calcium 8.0 L (8.4-10.2) mg/dL
[2024-05-17 12:36] VITALS: BP 134/76; PULSE 68
--- NOTE | 2024-05-19 15:00 | P.DS ---
Providers Date of admission: 05/13/24 10:46 Expected date of discharge: 05/17/24 Attending physician: Bright Artis MD Consults: 05/13/24 10:45 Consult Physician Routine Consulting Provider: Agustin Olson Consult Reason/Comments: chest pain Do you want consulting provider notified?: Yes 05/13/24 19:39 Consult Physician Routine Consulting Provider: Agustin Olson Consult Reason/Comments: Post Interventional patient Do you want consulting provider notified?: Already Contacted 05/16/24 08:43 Consult Physician Routine Consulting Provider: Agustin Olson Consult Reason/Comments: Post Interventional Patient Do you want consulting provider notified?: Already Contacted Primary care physician: Josie Holly Hospital Course: Final diagnosis Chest pain patient is status post stenting of the left proximal circumflex, left mid circumflex as well as LAD stenting Superficial venous thrombosis of the left basilic and cephalic veins with evidence of thrombophlebitis History of kidney stones History of melanoma IV infiltration Recent lithotripsy for kidney stones x 1 week ago GI prophylaxis Discharge disposition Patient is being discharged in a stable condition with guarded prognosis to home. Patient will follow-up with Dr. Holly in the outpatient setting upon discharge. Patient is to continue with oral antibiotics on discharge and close outpatient follow-up with cardiology as well as her scheduled appointment with urology as scheduled. Total time taken is greater than 35 minutes. Hospital course This is a 69 year-old female who was recently admitted with chest pain underwent stenting to the left proximal circumflex as well as mid circumflex and LAD with cardiology following closely. Patient also had IV infiltration on the left antecubital area with significant redness and swelling concerns for infection. Doppler was done showing a superficial venous thrombosis of the left basilic and cephalic veins with evidence of thrombophlebitis. Patient showing clinical improvement and will continue on antibiotics on discharge as well as topical mupirocin and recommend outpatient follow-up with cardiology, urology as previously scheduled, and your primary care provider this week. Patient has been cleared by consultations and would like to go home. Please refer to other consultation notes for further HPI. Currently no reports of chest pain, shortness of breath, or palpitations. Patient is afebrile. No reports of nausea or vomiting and patient is tolerating diet. Patient will be discharged home today. Guarded prognosis given significant comorbidities Physical exam: Gen: This is a 69-year-old female who is awake, alert and oriented x 3, thin built, elderly appearing HEENT: Head is atraumatic, normocephalic. Pupils equal, round. Sclerae is anicteric. NECK: Supple. No JVD. No lymphadenopathy. No thyromegaly. LUNGS: Diminished breath sounds bilaterally otherwise clear to auscultation. No wheezes or rhonchi. No intercostal retractions. HEART: Regular rate and rhythm. No murmur. ABDOMEN: Soft. Thin. Bowel sounds are present. No masses. No tenderness. EXTREMITIES: No pedal edema. No calf tenderness. Left upper extremity with redness and swelling noted in the antecubital area with previous IV site NEUROLOGICAL: Patient is awake, alert and oriented x3. Cranial nerves 2 through 12 are grossly intact. Please refer to medication reconciliation sheet for a list of medications. The impression and plan of care has been dictated by Celsa Magana, Nurse Practitioner as directed. Dr. Lit MD I have performed a history and examination and MDM of this patient, discussed the same with the dictator, and agree with the dictator's assessment and plan as written ,documented as a scribe. Based on total visit time, I have performed more than 50% of the visit. Patient Condition at Discharge: Fair Plan - Discharge Summary Discharge Rx Participant: No New Discharge Prescriptions: New Aspirin 81 mg PO DAILY #30 tab Prasugrel [Effient] 10 mg PO DAILY #30 tab Metoprolol Tartrate [Lopressor] 12.5 mg PO BID #60 tab Mupirocin 2% Oint [Bactroban 2% Oint] 1 applic TOPICAL BID 7 Days #22 gm Apixaban [Eliquis] 2.5 mg PO BID #60 tab Atorvastatin [Lipitor] 80 mg PO HS #30 tab HYDROcodone/APAP 5-325MG [[place] 5-325] 1 each PO Q6HR PRN #6 tab PRN Reason: Pain Acetaminophen Tab [Tylenol] 650 mg PO Q6HR PRN tab PRN Reason: Fever And/ Or Pain Doxycycline [Vibramycin] 100 mg PO BID 7 Days #14 capsule Continue Vitamin C(Unknown Dose) 2 tab PO DAILY Biotin(Unknown Dose) 1 tab PO DAILY Vitamin B-12(Unknown Dose) 1 tab PO DAILY Elderberry(Unknown Dose) 1 tab PO DAILY Discharge Medication List Biotin(Unknown Dose) 1 tab PO DAILY 05/13/24 [History] Elderberry(Unknown Dose) 1 tab PO DAILY 05/13/24 [History] Vitamin B-12(Unknown Dose) 1 tab PO DAILY 05/13/24 [History] Vitamin C(Unknown Dose) 2 tab PO DAILY 05/13/24 [History] Acetaminophen Tab [Tylenol] 650 mg PO Q6HR PRN tab 05/17/24 [Rx] Apixaban [Eliquis] 2.5 mg PO BID #60 tab 05/17/24 [Rx] Aspirin 81 mg PO DAILY #30 tab 05/17/24 [Rx] Atorvastatin [Lipitor] 80 mg PO HS #30 tab 05/17/24 [Rx] Doxycycline [Vibramycin] 100 mg PO BID 7 Days #14 capsule 05/17/24 [Rx] HYDROcodone/APAP 5-325MG [[place] 5-325] 1 each PO Q6HR PRN #6 tab 05/17/24 [Rx] Metoprolol Tartrate [Lopressor] 12.5 mg PO BID #60 tab 05/17/24 [Rx] Mupirocin 2% Oint [Bactroban 2% Oint] 1 applic TOPICAL BID 7 Days #22 gm 05/17/24 [Rx] Prasugrel [Effient] 10 mg PO DAILY #30 tab 05/17/24 [Rx] Follow up Appointment(s)/Referral(s): Josie Holly MD [Primary Care Provider] - 1-2 days (office did not answer please call and make appointment ) Nando Rene MD [STAFF PHYSICIAN] - 1 Week (office will call you and make follow- up ) Patient Instructions/Handouts: *Surgery [facility] - After Heart Catheterization - Sports [facility]ship Instructions, Chest Pain (DC), Heart Catheterization (DC) Activity/Diet/Wound Care/Special Instructions: Activity limited until follow-up Follow-up with primary care provider on discharge Follow-up with urology outpatient as scheduled Follow-up with cardiology outpatient Continue taking medications as prescribed Continue with warm compresses to the left elbow fold area and use mupirocin cream as well as oral antibiotics for 1 week Only soap and water to that area and try not to touch very frequently other than applying antibiotic ointment Elevate left upper extremity while at rest Discharge Disposition: HOME SELF-CARE
== END 2024-05-17 16:08 | disposition home or self-care (01) | DRG 324 ==
LOC: EC 08:30 → 6NMEDSUR 10:45 → OBSVTOIN 10:46 → 3SCARD 13:03
PROVIDERS: ADMIT Internal Medicine; ATTEND Internal Medicine
PROC: B240ZZ3 Ultrasonography of Single Coronary Artery, Intravascular (ICD-10-PCS; 2024-05-13 16:10)
PROC: 4A023N7 Measurement of Cardiac Sampling and Pressure, Left Heart, Percutaneous Approach (ICD-10-PCS; 2024-05-13 16:10)
PROC: 027035Z Dilation of Coronary Artery, One Artery with Two Drug-eluting Intraluminal Devices, Percutaneous Approach (ICD-10-PCS; 2024-05-13 16:10)
PROC: 4A033BC Measurement of Arterial Pressure, Coronary, Percutaneous Approach (ICD-10-PCS; 2024-05-13 16:10)
PROC: B2111ZZ Fluoroscopy of Multiple Coronary Arteries using Low Osmolar Contrast (ICD-10-PCS; 2024-05-13 16:10)
PROC: 027035Z Dilation of Coronary Artery, One Artery with Two Drug-eluting Intraluminal Devices, Percutaneous Approach (ICD-10-PCS; principal; 2024-05-16 07:00)
PROC: B240ZZ3 Ultrasonography of Single Coronary Artery, Intravascular (ICD-10-PCS; principal; 2024-05-16 07:00)
PROC: 02F03ZZ Fragmentation in Coronary Artery, One Artery, Percutaneous Approach (ICD-10-PCS; principal; 2024-05-16 07:00)
DX: I21.4 Non-ST elevation (NSTEMI) myocardial infarction (principal); I82.612 Acute embolism and thrombosis of superficial veins of left upper extremity; I34.0 Nonrheumatic mitral (valve) insufficiency; I45.2 Bifascicular block; I48.91 Unspecified atrial fibrillation; I80.8 Phlebitis and thrombophlebitis of other sites; Y82.8 Other medical devices associated with adverse incidents; E78.5 Hyperlipidemia, unspecified; I25.10 Atherosclerotic heart disease of native coronary artery without angina pectoris; I25.2 Old myocardial infarction; R73.03 Prediabetes; Z85.820 Personal history of malignant melanoma of skin; Z87.442 Personal history of urinary calculi; Z87.440 Personal history of urinary (tract) infections; Z88.1 Allergy status to other antibiotic agents; Z88.2 Allergy status to sulfonamides; Z20.822 Contact with and (suspected) exposure to COVID-19
CPT/HCPCS: 36415; 71046; 80048; 80053; 80061; 81001; 83036; 83690; 83735; 84443; 84484; 85025; 85379; 85610; 85730; 87636; 93005; 93270; 93306; 96361; 96365; 96375; 96376; 99291